=== PATIENT | female | born 1955 | race Caucasian/White ===

== ENCOUNTER 2020-07-23 06:07 | Outpatient (REF) | payer MEDICARE, OTHER, SELFPAY ==
[2020-07-23 11:10] LABS: MANUAL DIFF FLAG NO
[2020-07-23 11:18] LABS: Basophils Percent Auto 0.4 % (0-2); Eosinophils Absolute Auto 0.2 X10*3/uL (0.0-0.4); Eosinophils Percent Auto 1.9 % (0-4); Hematocrit 44.2 % (37-47); Hemoglobin 14.3 g/dl (12.0-16.0); Imm Gran Abs Auto 0.02 X10*3/uL (0.00-0.03); Imm Gran Pct Auto 0.3 % (0.0-0.4); Lymphocytes Absolute Auto 3.1 X10*3/uL (1.2-4.9); Lymphocytes Percent Auto 38.8 % (20-40); Mean Corpuscular HGB Conc 32.4 g/dl (31.0-35.0); Mean Corpuscular Hemoglobin 32.6 pg (27.0-33.0); Mean Corpuscular Volume 100.9 fL (80-98); Mean Platelet Volume 9.4 fL (9.4-12.3); Monocytes Absolute Auto 0.7 X10*3/uL (0.1-1.2); Monocytes Percent Auto 8.8 % (2-11); Neutrophils Percent Auto 49.8 % (45-73); Platelet Count 347 X10*3/uL (160-400); Red Blood Count 4.38 X10*6/uL (4.20-5.50); Red Cell Distribution Width 12.6 % (11.0-16.0)
[2020-07-23 11:56] LABS: Alanine Aminotransferase 24 U/L (0-31); Albumin Level 4.2 g/dL (3.5-5.0); Alkaline Phosphatase 72 U/L (39-117); Anion Gap 11 (12-20); Aspartate Amino Transferase 19 U/L (5-31); Bilirubin Total 0.5 mg/dL (0.0-1.0); Blood Urea Nitrogen 19 mg/dL (9-16); Calcium 9.4 mg/dL (8.4-10.2); Carbon Dioxide 30 mmol/L (22-29); Chloride 101 mmol/L (96-108); Cholesterol 198 mg/dL; Estimated Glomerular Filt Rate > 60; Glucose Fasting 96 mg/dL (60-99); HDL Cholesterol 50 mg/dL; LDL Cholesterol Calculated 118 mg/dl; Potassium 4.9 mmol/l (3.3-5.1); Sodium 137 mmol/L (135-145); Triglycerides 152 mg/dL
== END 2020-07-23 06:08 | disposition home or self-care (01) ==
LOC: HO.HMGCLDS 06:07
PROVIDERS: PCP Internal Medicine; Visit Provider Internal Medicine
DX: I10 Essential (primary) hypertension (principal); E78.9 Disorder of lipoprotein metabolism, unspecified; Z72.0 Tobacco use; Z71.6 Tobacco abuse counseling
CPT/HCPCS: 36415; 80053; 80061; 85025

== ENCOUNTER 2021-02-06 06:13 | Outpatient (REF) | payer MEDICARE, SELFPAY ==
[2021-02-06 11:58] LABS: MANUAL DIFF FLAG NO
[2021-02-06 12:26] LABS: Basophils Percent Auto 0.4 % (0-2); Eosinophils Absolute Auto 0.1 X10*3/uL (0.0-0.4); Eosinophils Percent Auto 0.8 % (0-4); Hematocrit 47.2 % (37-47); Hemoglobin 15.5 g/dl (12.0-16.0); Imm Gran Abs Auto 0.03 X10*3/uL (0.00-0.03); Imm Gran Pct Auto 0.4 % (0.0-0.4); Lymphocytes Absolute Auto 2.4 X10*3/uL (1.2-4.9); Lymphocytes Percent Auto 28.5 % (20-40); Mean Corpuscular HGB Conc 32.8 g/dl (31.0-35.0); Mean Corpuscular Hemoglobin 33.6 pg (27.0-33.0); Mean Corpuscular Volume 102.4 fL (80-98); Mean Platelet Volume 9.5 fL (9.4-12.3); Monocytes Absolute Auto 0.6 X10*3/uL (0.1-1.2); Monocytes Percent Auto 7.3 % (2-11); Neutrophils Absolute Auto 5.2 X10*3/uL (2.0-8.3); Neutrophils Percent Auto 62.6 % (45-73); Platelet Count 325 X10*3/uL (160-400); Red Blood Count 4.61 X10*6/uL (4.20-5.50); Red Cell Distribution Width 13.3 % (11.0-16.0); White Blood Count 8.3 X10*3/uL (4.8-10.8)
[2021-02-06 13:36] LABS: Alanine Aminotransferase 30 U/L (0-31); Albumin Level 4.6 g/dL (3.5-5.0); Alkaline Phosphatase 75 U/L (39-117); Anion Gap 19 (12-20); Aspartate Amino Transferase 32 U/L (5-31); Bilirubin Total 1.3 mg/dL (0.0-1.0); Blood Urea Nitrogen 12 mg/dL (9-16); Carbon Dioxide 21 mmol/L (22-29); Chloride 101 mmol/L (96-108); Cholesterol 212 mg/dL; Estimated Glomerular Filt Rate > 60; Glucose Fasting 93 mg/dL (60-99); HDL Cholesterol 64 mg/dL; LDL Cholesterol Calculated 113 mg/dl; Potassium 4.7 mmol/L (3.3-5.1); Sodium 136 mmol/L (135-145); Total Protein 7.8 g/dL (6.5-8.0); Triglycerides 179 mg/dL
== END 2021-02-06 06:14 | disposition home or self-care (01) ==
LOC: HO.HMGCLDS 06:13
PROVIDERS: PCP Internal Medicine; Visit Provider Internal Medicine
DX: I10 Essential (primary) hypertension (principal); E78.9 Disorder of lipoprotein metabolism, unspecified; Z72.0 Tobacco use
CPT/HCPCS: 36415; 80053; 80061; 85025

== ENCOUNTER 2021-03-20 08:47 | Outpatient (REF) | payer MEDICARE, SELFPAY ==
--- NOTE | ~2021-03-20 | MM_ITS ---
EXAMINATION: MM SCREENING DIGITAL BREAST TOMOSYNTHESIS, BILATERAL CLINICAL INFORMATION: Screening. Asymptomatic. The lifetime risk of breast cancer based on the Tyrer-Cuzick Model is 7%. COMPARISON: Mammography: 07/06/2019, 06/15/2018, 01/05/2017 TECHNIQUE: Digital breast tomosynthesis is performed in both the craniocaudal and mediolateral oblique views along with computer-aided detection (CAD). Synthesized 2D images are generated from the tomosynthesis. FINDINGS: There are scattered areas of fibroglandular density (ACR BI-RADS breast composition Category b). There are no significant masses, abnormal calcifications, or other abnormalities. Inhomogeneous parenchymal pattern is similar to prior exams. No developing density. The axilla and skin contours are unremarkable. MM/MM tomosynthesis screening BI IMPRESSION: No mammographic evidence of malignancy. ASSESSMENT: BI-RADS 1: Negative RECOMMENDATION: Routine annual mammography screening. This patient's information was entered into a reminder system with a target due date for their next mammogram.
== END 2021-03-20 08:48 | disposition home or self-care (01) ==
LOC: HO.MAMMO 08:47
PROVIDERS: Visit Provider Internal Medicine
DX: Z12.31 Encounter for screening mammogram for malignant neoplasm of breast (principal)
CPT/HCPCS: 77063; 77067

== ENCOUNTER 2021-10-06 08:50 | Outpatient (REF) | payer MEDICARE, SELFPAY ==
[2021-10-06 11:53] LABS: Alanine Aminotransferase 21 U/L (0-31); Albumin Level 4.3 g/dL (3.5-5.0); Alkaline Phosphatase 72 U/L (39-117); Anion Gap 14 (12-20); Aspartate Amino Transferase 23 U/L (5-31); Blood Urea Nitrogen 15 mg/dL (9-16); Calcium 10.3 mg/dL (8.4-10.2); Carbon Dioxide 28 mmol/L (22-29); Chloride 102 mmol/L (96-108); Estimated Glomerular Filt Rate > 60; Glucose Random 96 mg/dL (60-115); Potassium 4.7 mmol/L (3.3-5.1); Sodium 139 mmol/L (135-145); Total Protein 7.3 g/dL (6.5-8.0)
== END 2021-10-06 08:51 | disposition home or self-care (01) ==
LOC: HO.HMGCLDS 08:50
PROVIDERS: Visit Provider Internal Medicine
DX: E78.9 Disorder of lipoprotein metabolism, unspecified (principal); I10 Essential (primary) hypertension; Z72.0 Tobacco use
CPT/HCPCS: 36415; 80053

== ENCOUNTER 2022-04-07 06:18 | Outpatient (REF) | payer MEDICARE, SELFPAY ==
[2022-04-07 13:48] LABS: Alanine Aminotransferase 17 U/L (0-31); Albumin Level 4.3 g/dL (3.5-5.0); Alkaline Phosphatase 76 U/L (39-117); Anion Gap 13 (12-20); Aspartate Amino Transferase 18 U/L (5-31); Bilirubin Total 0.7 mg/dL (0.0-1.0); Blood Urea Nitrogen 14 mg/dL (9-16); Calcium 9.3 mg/dL (8.4-10.2); Carbon Dioxide 28 mmol/L (22-29); Chloride 101 mmol/L (96-108); Cholesterol 219 mg/dL; Estimated Glomerular Filt Rate > 60; Glucose Fasting 103 mg/dL (60-99); HDL Cholesterol 57 mg/dL; LDL Cholesterol Calculated 141 mg/dl; Potassium 4.6 mmol/L (3.3-5.1); Sodium 137 mmol/L (135-145); Triglycerides 108 mg/dL
== END 2022-04-07 06:19 | disposition home or self-care (01) ==
LOC: HO.HMGCLDS 06:18
PROVIDERS: PCP Internal Medicine; Visit Provider Internal Medicine
DX: E78.9 Disorder of lipoprotein metabolism, unspecified (principal); I10 Essential (primary) hypertension; M18.12 Unilateral primary osteoarthritis of first carpometacarpal joint, left hand; Z72.0 Tobacco use
CPT/HCPCS: 36415; 80053; 80061

== ENCOUNTER 2022-10-06 18:27 | Inpatient (IN) | payer MEDICARE, SELFPAY ==
--- NOTE | ~2022-10-06 | XR_ITS ---
EXAMINATION: XR ABDOMEN KUB CLINICAL INDICATION: Instrument count in OR. COMPARISON: CT scan of 10/06/2022. TECHNIQUE: AP view of the pelvis FINDINGS: Visualized bowel loops appear unremarkable. Staple line is seen about the right lower pelvis. No radiopaque foreign body is identified to suggest a retained foreign body. About the upper thigh there is evidence of a sponge but which is not in the region of the peritoneum and is likely overlying. Peace catheter in place. No evidence of acute fracture or diastases of the pelvis. There appears be significant degenerative disc disease seen of the lower lumbar spine. XR/XR KUB IMPRESSION: No retained instruments seen about the pelvis.
--- NOTE | ~2022-10-06 | CT_ITS ---
EXAMINATION: CT ABDOMEN AND PELVIS WITH CONTRAST CLINICAL INFORMATION: Strangulated right inguinal hernia. COMPARISON: None TECHNIQUE: Multidetector volumetric images were obtained from the superior aspect of the liver through the pubic symphysis following administration 85 mL of Omnipaque 350 intravenous contrast. Sagittal and coronal reformatted images were obtained on the technologist's workstation. Oral contrast: No This CT examination was performed using dose optimization techniques as appropriate, variously including the following: *Automated exposure control *Adjustment of mA and/or kV according to patient size (this includes techniques or standardized protocols for targeted exams where dose is matched to indication/reason for exam; i.e. extremities or head) *Use of iterative reconstruction technique DLP: 516 mGy-cm FINDINGS: LUNG BASES: The visualized lung bases are unremarkable. LIVER, GALLBLADDER, AND BILIARY TREE: The liver is normal in size, shape, and attenuation. No focal hepatic lesion or biliary ductal dilatation is present. The gallbladder is unremarkable with no evidence of radiopaque gallstones, gallbladder wall thickening, or obvious pericholecystic inflammatory changes. PANCREAS: Unremarkable. SPLEEN: Unremarkable. ADRENAL GLANDS: Unremarkable. KIDNEYS AND URETERS: The kidneys are normal in size, shape, and attenuation. No hydronephrosis, hydroureter, or calculi seen. No perinephric stranding. BLADDER: Unremarkable. ABDOMINAL WALL/GASTROINTESTINAL TRACT: There is a cannulated right inguinal hernia. There is a loop of small bowel extending through the right inguinal canal causing obstruction at the level canal. The loop of bowel in the inguinal canal is slightly dilated as well. The small bowel loops distal to the hernia are decompressed. There is no bowel wall thickening or edema. There is a small volume of fluid in the mesentery. No free air or portal venous gas. The large bowel is decompressed. Small volume of stool in the right colon. The appendix is normal. LYMPH NODES: Normal. VASCULAR: Atherosclerotic vascular calcifications throughout the abdomen and the pelvis. There is no aneurysm. PELVIC VISCERA: Uterus is absent. No adnexal abnormality. OSSEOUS STRUCTURES: Multilevel degenerative spondylosis spine. Vacuum disc phenomena L4-L5. CT/CT abdomen pelvis w IV con IMPRESSION: Incarcerated right inguinal hernia containing a loop of small bowel causing obstruction at the level of the hernia. There is a small volume of fluid in the mesentery. No bowel wall thickening or edema. Fleischner guidelines were followed. This critical result was discussed with Enrique Edward on 10/06/2022, 10:00 PM and it was ascertained that the content and urgency of the report was understood at the time of direct communication.
--- NOTE | 2022-10-06 18:44 | ED_ITS ---
HPI - Abdominal Pain General Chief Complaint: Abdominal Pain Stated Complaint: stomach ache, lump in groin area Time Seen by Provider: 10/06/22 19:57 Related Data Previous Rx's Medication Instructions Recorded lisinopril 20 mg tablet 20 mg PO DAILY 90 days #90 tabs 08/20/22 lovastatin 20 mg tablet 20 mg PO DAILY 90 days #90 tabs 08/20/22 ibuprofen 600 mg tablet 600 mg PO Q6H PRN pain #30 tabs 10/08/22 oxycodone-acetaminophen 5 mg-325 1 tab PO Q4-6H PRN pain #20 tabs 10/08/22 mg tablet (Percocet) Allergies Allergy/AdvReac Type Severity Reaction Status Date / Time No Known Allergies Allergy Verified 10/12/22 08:18 [facility] Past Medical History Medical History Hypertension, essential Lipid disorder Tobacco abuse Surgical History History of vaginal hysterectomy Family History Family History Father Lung cancer Smoker Mother Breast cancer Dementia Brother Myocardial infarction Brother No problems noted. Sister No problems noted. Sister No problems noted. Sister No problems noted. Son No problems noted. Social History Social History Household Members: Family Housing: Apartment Do you presently have visiting nurse or other home services: No Alcohol intake: current Alcohol intake frequency: holidays/special occasions only Alcohol type: beer and hard liquor Patient Tobacco Use Status: Current everyday Tobacco user Tobacco use type: Cigarette Cigarettes Per Day: 4 e-Cigarette/Vaping Use: Never Used service: No Current occupational status: employed Cognitive needs: No Hearing needs: No Vision needs: No Physical Exam ED Vital Signs: BMI result Body Mass Index 26.2 Course Course Course Narrative: This is a rapid medical exam. Deferred additional HPI, ROS, PE to primary provider. 67 yo female with past medical history of COPD, HTN, HLD here with complaints of abdominal pain 11am with lump to right groin, vomiting. Had total hyst 8 yrs ago, no other abdominal surgery history. In triage right inguinal hernia quite painful-concern for incarcerated hernia. Will need labs, UA, covid screen, CT. Charge nurse to be notified. Medical Decision Making Lab Data 10/06/22 19:28 10/06/22 19:28 Labs: Lab Results 10/06/22 10/06/22 10/06/22 Range/Units 19:28 19:28 19:28 WBC 11.5 H (4.8-10.8) X10*3/uL RBC 4.75 (4.20-5.50) X10*6/uL Hgb 16.0 (12.0-16.0) g/dl Hct 46.0 (37.0-47.0) % MCV 96.8 (80.0-98.0) fL MCH 33.7 H (27.0-33.0) pg MCHC 34.8 (31.0-35.0) g/dl RDW 12.0 (11.0-16.0) % Plt Count 364 (160-400) X10*3/uL MPV 8.3 L (9.4-12.3) fL Immature Gran % (Auto) 0.3 (0.0-0.4) % Neut % (Auto) 80.5 H (45-73) % Lymph % (Auto) 15.5 L (20-40) % Quay % (Auto) 3.2 (2-11) % Eos % (Auto) 0.2 (0-4) % Baso % (Auto) 0.3 (0-2) % Lymph # (Auto) 1.8 (1.2-4.9) X10*3/uL Quay # (Auto) 0.4 (0.1-1.2) X10*3/uL Eos # (Auto) 0.0 (0.0-0.4) X10*3/uL Baso # (Auto) 0.0 (0.0-0.2) X10*3/uL Abs Immat Gran (auto) 0.03 (0.00-0.03) X10*3/uL Absolute Neuts (auto) 9.3 H (2.0-8.3) x10*3/uL Absolute Nucleated RBC 0.000 (0.0-0.012) X10*3/uL Nucleated RBC % (auto) 0.0 (0.0-0.2) /100WBC PT (10.0-13.1) SEC INR (0.9-1.1) Sodium 135 (135-145) mmol/L Potassium 4.9 (3.3-5.1) mmol/L Chloride 100 (96-108) mmol/L Carbon Dioxide 25 (22-29) mmol/L Anion Gap 15 (12-20) BUN 21 H (9-16) mg/dL Creatinine 0.77 (0.5-1.4) mg/dL Estim Creat Clear Calc 65.2 Estimated GFR > 60 Random Glucose 162 H (60-115) mg/dL Lactic Acid (0.5-2.0) mmol/L Calcium 10.1 D (8.4-10.2) mg/dL Total Bilirubin 0.8 (0.0-1.0) mg/dL Direct Bilirubin 0.2 (0.0-0.5) mg/dL AST 19 (5-31) U/L ALT 14 (0-31) U/L Alkaline Phosphatase 99 (39-117) U/L Total Protein 7.4 (6.5-8.0) g/dL Albumin 4.3 (3.5-5.0) g/dL Lipase 12 (8-78) U/L COVID-19 (NISHANT) Negative (Negative) COVID-19 Clin Com See Note 10/06/22 10/06/22 10/06/22 Range/Units 19:28 20:30 20:30 WBC (4.8-10.8) X10*3/uL RBC (4.20-5.50) X10*6/uL Hgb (12.0-16.0) g/dl Hct (37.0-47.0) % MCV (80.0-98.0) fL MCH (27.0-33.0) pg MCHC (31.0-35.0) g/dl RDW (11.0-16.0) % Plt Count (160-400) X10*3/uL MPV (9.4-12.3) fL Immature Gran % (Auto) (0.0-0.4) % Neut % (Auto) (45-73) % Lymph % (Auto) (20-40) % Quay % (Auto) (2-11) % Eos % (Auto) (0-4) % Baso % (Auto) (0-2) % Lymph # (Auto) (1.2-4.9) X10*3/uL Quay # (Auto) (0.1-1.2) X10*3/uL Eos # (Auto) (0.0-0.4) X10*3/uL Baso # (Auto) (0.0-0.2) X10*3/uL Abs Immat Gran (auto) (0.00-0.03) X10*3/uL Absolute Neuts (auto) (2.0-8.3) x10*3/uL Absolute Nucleated RBC (0.0-0.012) X10*3/uL Nucleated RBC % (auto) (0.0-0.2) /100WBC PT 11.0 (10.0-13.1) SEC INR 1.0 (0.9-1.1) Sodium (135-145) mmol/L Potassium (3.3-5.1) mmol/L Chloride (96-108) mmol/L Carbon Dioxide (22-29) mmol/L Anion Gap (12-20) BUN (9-16) mg/dL Creatinine (0.5-1.4) mg/dL Estim Creat Clear Calc Estimated GFR Random Glucose (60-115) mg/dL Lactic Acid 0.9 0.8 (0.5-2.0) mmol/L Calcium (8.4-10.2) mg/dL Total Bilirubin (0.0-1.0) mg/dL Direct Bilirubin (0.0-0.5) mg/dL AST (5-31) U/L ALT (0-31) U/L Alkaline Phosphatase (39-117) U/L Total Protein (6.5-8.0) g/dL Albumin (3.5-5.0) g/dL Lipase (8-78) U/L COVID-19 (NISHANT) (Negative) COVID-19 Clin Com Medications Administered Discontinued Medications Generic Name Dose Route Start Last Admin Trade Name Freq PRN Reason Stop Dose Admin Hydromorphone HCl 1 mg 10/06/22 20:03 10/06/22 20:34 Hydromorphone Hcl 1 Mg/Ml Syringe IVPUSH 10/06/22 20:04 1 mg ONCE ONE Administration Protocol Sodium Chloride 1,000 mls @ 999 mls/hr 10/06/22 20:15 10/07/22 06:15 Ns IV 10/06/22 21:15 Infused .Q1H1M LOLY Infusion Sodium Chloride 1,000 mls @ 60 mls/hr 10/06/22 23:45 10/08/22 09:42 Ns IVCONT Infused .[id number] LOLY Infusion Cefazolin Sodium 2 gm/ Sodium 100 mls @ 200 mls/hr 10/06/22 23:48 10/07/22 06:16 Chloride IV 10/07/22 00:17 Infused ONCE ONE Infusion Cefazolin Sodium 1 gm/ Sodium 50 mls @ 100 mls/hr 10/07/22 04:00 10/07/22 06:35 Chloride IV 10/08/22 06:00 Not Given Q8H LOLY Cefazolin Sodium 1 gm/ Sodium 50 mls @ 100 mls/hr 10/07/22 10:00 10/08/22 09:42 Chloride IV Infused Q8H [facility] Infusion Iohexol 100 ml 10/06/22 21:25 10/06/22 21:25 Iohexol 350 Mg/Ml 100 Ml Infus..Btl IV 10/06/22 21:26 85 ml ONCE ONE Administration Lorazepam 0.5 mg 10/06/22 20:03 10/06/22 20:33 Lorazepam 2 Mg/Ml Vial IVPUSH 10/06/22 20:04 0.5 mg ONCE ONE Administration Oxycodone HCl 5 mg 10/07/22 00:13 10/08/22 09:14 Oxycodone Hcl Immed Release 5 Mg Tablet PO 5 mg ONCE PRN Administration Pain, Severe (Pain Scale 7-10) Oxycodone HCl 10 mg 10/07/22 03:59 10/08/22 03:56 Oxycodone Hcl Immed Release 5 Mg Tablet PO 10 mg Q4H PRN Administration Pain, Severe (Pain Scale 7-10) Sodium Chloride 3 ml 10/07/22 00:00 10/08/22 09:09 0.9 % Sodium Chloride Flush 3 Ml Syringe IVFLUSH 3 ml QSHIFT [facility] Administration Discharge Plan Discharge Clinical Impression: Incarcerated inguinal hernia Patient Disposition: Admitted As Inpatient Interventions: Admission Worksheet (ED) Last Done: 10/07/22 07:07 Discharge Date/Time: 10/07/22 01:00
[2022-10-06 18:45] VITALS: BP 145/92; PULSE 72; RESP 18; TEMP 36.8; O2SAT 93; BMI 26.2
[2022-10-06 19:34] LABS: MANUAL DIFF FLAG NO
[2022-10-06 19:36] LABS: Basophils Percent Auto 0.3 % (0-2); Eosinophils Percent Auto 0.2 % (0-4); Imm Gran Abs Auto 0.03 X10*3/uL (0.00-0.03); Imm Gran Pct Auto 0.3 % (0.0-0.4); Lymphocytes Absolute Auto 1.8 X10*3/uL (1.2-4.9); Lymphocytes Percent Auto 15.5 % (20-40); Mean Corpuscular HGB Conc 34.8 g/dl (31.0-35.0); Mean Corpuscular Hemoglobin 33.7 pg (27.0-33.0); Mean Corpuscular Volume 96.8 fL (80.0-98.0); Mean Platelet Volume 8.3 fL (9.4-12.3); Monocytes Absolute Auto 0.4 X10*3/uL (0.1-1.2); Monocytes Percent Auto 3.2 % (2-11); Neutrophils Absolute Auto 9.3 x10*3/uL (2.0-8.3); Neutrophils Percent Auto 80.5 % (45-73); Platelet Count 364 X10*3/uL (160-400); Red Blood Count 4.75 X10*6/uL (4.20-5.50); White Blood Count 11.5 X10*3/uL (4.8-10.8)
[2022-10-06 19:47] LABS: Lactic Acid 0.9 mmol/L (0.5-2.0)
[2022-10-06 19:50] LABS: COVID-19 Test Negative (Negative); IDNOW Serial# 6674DD1D
[2022-10-06 19:53] LABS: Alanine Aminotransferase 14 U/L (0-31); Albumin Level 4.3 g/dL (3.5-5.0); Alkaline Phosphatase 99 U/L (39-117); Anion Gap 15 (12-20); Aspartate Amino Transferase 19 U/L (5-31); Bilirubin Direct 0.2 mg/dL (0.0-0.5); Bilirubin Total 0.8 mg/dL (0.0-1.0); Blood Urea Nitrogen 21 mg/dL (9-16); Calcium 10.1 mg/dL (8.4-10.2); Carbon Dioxide 25 mmol/L (22-29); Chloride 100 mmol/L (96-108); Creatinine Clr Calc Pharmacy 65.2; Estimated Glomerular Filt Rate > 60; Glucose Random 162 mg/dL (60-115); Lipase 12 U/L (8-78); Potassium 4.9 mmol/L (3.3-5.1); Sodium 135 mmol/L (135-145); Total Protein 7.4 g/dL (6.5-8.0)
--- NOTE | 2022-10-06 20:05 | ECG_ITS ---
Test Reason : ABD PAIN Blood Pressure : / mmHG Vent. Rate : 076 BPM Atrial Rate : 076 BPM P-R Int : 162 ms QRS Dur : 096 ms QT Int : 406 ms P-R-T Axes : 069 063 071 degrees QTc Int : 456 ms Normal sinus rhythm Normal ECG No previous ECGs available Referred By: Enrique Flores Electronically Signed By:Kit Kirk
--- NOTE | 2022-10-06 20:07 | ED.ABDPAIN ---
HPI - Abdominal Pain General Chief Complaint: Abdominal Pain Stated Complaint: stomach ache, lump in groin area Time Seen by Provider: 10/06/22 19:57 Source: patient and old records reviewed History of Present Illness HPI narrative: Patient with acute onset abdominal pain. Patient states she has recently had a cough but no other illnesses. She tested for COVID negative at home. Today, however, she developed acute severe abdominal pain. She complains of pain neuro upper epigastric area as well as a large new lump in her right groin. She does not have a history of hernias. Last bowel movement was yesterday and normal. Nausea vomiting today after the pain started. No recent diarrhea. No urinary symptoms No fevers or chills Pain is severe. Related Data Previous Rx's Medication Instructions Recorded lisinopril 20 mg tablet 20 mg PO DAILY 90 days #90 tabs 08/20/22 lovastatin 20 mg tablet 20 mg PO DAILY 90 days #90 tabs 08/20/22 Allergies Allergy/AdvReac Type Severity Reaction Status Date / Time No Known Allergies Allergy Verified 04/06/22 08:29 Review of Systems Comments: No fevers or chills Comments: No chest pain Comments: Recent cough. No dyspnea Comments: Abdominal pain is described Comments: No urinary symptoms Comments: No change in skin color PMFSH Past Medical History Medical History Hypertension, essential Lipid disorder Tobacco abuse Surgical History History of vaginal hysterectomy Family History Family History Father Lung cancer Smoker Mother Breast cancer Dementia Brother Myocardial infarction Brother No problems noted. Sister No problems noted. Sister No problems noted. Sister No problems noted. Son No problems noted. Social History Social History Housing: House Alcohol intake: current Alcohol intake frequency: holidays/special occasions only Alcohol type: beer and hard liquor Patient Tobacco Use Status: Current everyday Tobacco user Cigarette Packs Per Day: 0.5 Smoked in Last 30 Days: Yes e-Cigarette/Vaping Use: Never Used Use of substances other than those prescribed or required for medical reasons: No Advance Directives: No Advance Directives Information Provided: No Current occupational status: employed Cognitive needs: No Hearing needs: No Vision needs: No Physical Exam ED Vital Signs: Vital Signs - 24 hr 10/06/22 18:45 10/06/22 20:34 10/06/22 21:51 Temperature 98.3 F 98.6 F Pulse Rate 72 76 Respiratory Rate 18 16 20 Blood Pressure 145/92 H 133/78 Pulse Oximetry 93 93 Oxygen Delivery Method Room Air Nasal Cannula Oxygen Flow Rate 2 BMI result Body Mass Index 26.2 Const Other: Awake alert. Appears uncomfortable Resp Other: Clear and equal bilaterally Cardio Other: Regular rate and rhythm without murmurs rubs or gallops GI Other: Abdomen is soft and minimally distended. She is tender in the epigastric area. She has a large 5 x 10 cm mass in her right inguinal area. It is firm and tender. I am unable to reduce it at this time Skin Other: Warm pale and dry Neuro Other: Nonfocal neuro exam Medical Decision Making Medical Decision Making MDM Narrative: Patient with acute abdominal pain and now with a mass in her right inguinal area. It is consistent with an incarcerated probably strangulated hernia given her vomiting. Will medicate with IV pain medications and attempt to reduce it again. Will also image post reduction. 20:11. Lab work shows normal chemistries including creatinine. Her glucose is mildly elevated 162. CBC is remarkable for a white count of 11.5. Hemoglobin is normal to high. Serology shows no evidence of COVID-19 infection. 20:46. Patient medicated with Dilaudid and Ativan. She is more comfortable. Patient then placed in Trendelenburg position. Attempted reduction of hernia with gentle pressure. Patient tolerated the attempt well but attempted reduction was unsuccessful. Will send CT scan at this time 23:06. CT scan shows incarcerated hernia. There is no bowel wall thickening however but there is obstruction. Case discussed with Dr. Ferrara, surgery. She is in to see the patient for probable operative reduction. Lab Data 10/06/22 19:28 10/06/22 19:28 Labs: Lab Results 10/06/22 10/06/22 10/06/22 Range/Units 19:28 19:28 19:28 WBC 11.5 H (4.8-10.8) X10*3/uL RBC 4.75 (4.20-5.50) X10*6/uL Hgb 16.0 (12.0-16.0) g/dl Hct 46.0 (37.0-47.0) % MCV 96.8 (80.0-98.0) fL MCH 33.7 H (27.0-33.0) pg MCHC 34.8 (31.0-35.0) g/dl RDW 12.0 (11.0-16.0) % Plt Count 364 (160-400) X10*3/uL MPV 8.3 L (9.4-12.3) fL Immature Gran % (Auto) 0.3 (0.0-0.4) % Neut % (Auto) 80.5 H (45-73) % Lymph % (Auto) 15.5 L (20-40) % Whiteside % (Auto) 3.2 (2-11) % Eos % (Auto) 0.2 (0-4) % Baso % (Auto) 0.3 (0-2) % Lymph # (Auto) 1.8 (1.2-4.9) X10*3/uL Whiteside # (Auto) 0.4 (0.1-1.2) X10*3/uL Eos # (Auto) 0.0 (0.0-0.4) X10*3/uL Baso # (Auto) 0.0 (0.0-0.2) X10*3/uL Abs Immat Gran (auto) 0.03 (0.00-0.03) X10*3/uL Absolute Neuts (auto) 9.3 H (2.0-8.3) x10*3/uL Absolute Nucleated RBC 0.000 (0.0-0.012) X10*3/uL Nucleated RBC % (auto) 0.0 (0.0-0.2) /100WBC PT (10.0-13.1) SEC INR (0.9-1.1) Sodium 135 (135-145) mmol/L Potassium 4.9 (3.3-5.1) mmol/L Chloride 100 (96-108) mmol/L Carbon Dioxide 25 (22-29) mmol/L Anion Gap 15 (12-20) BUN 21 H (9-16) mg/dL Creatinine 0.77 (0.5-1.4) mg/dL Estim Creat Clear Calc 65.2 Estimated GFR > 60 Random Glucose 162 H (60-115) mg/dL Lactic Acid (0.5-2.0) mmol/L Calcium 10.1 D (8.4-10.2) mg/dL Total Bilirubin 0.8 (0.0-1.0) mg/dL Direct Bilirubin 0.2 (0.0-0.5) mg/dL AST 19 (5-31) U/L ALT 14 (0-31) U/L Alkaline Phosphatase 99 (39-117) U/L Total Protein 7.4 (6.5-8.0) g/dL Albumin 4.3 (3.5-5.0) g/dL Lipase 12 (8-78) U/L COVID-19 (NISHANT) Negative (Negative) COVID-19 Clin Com See Note 10/06/22 10/06/22 10/06/22 Range/Units 19:28 20:30 20:30 WBC (4.8-10.8) X10*3/uL RBC (4.20-5.50) X10*6/uL Hgb (12.0-16.0) g/dl Hct (37.0-47.0) % MCV (80.0-98.0) fL MCH (27.0-33.0) pg MCHC (31.0-35.0) g/dl RDW (11.0-16.0) % Plt Count (160-400) X10*3/uL MPV (9.4-12.3) fL Immature Gran % (Auto) (0.0-0.4) % Neut % (Auto) (45-73) % Lymph % (Auto) (20-40) % Whiteside % (Auto) (2-11) % Eos % (Auto) (0-4) % Baso % (Auto) (0-2) % Lymph # (Auto) (1.2-4.9) X10*3/uL Whiteside # (Auto) (0.1-1.2) X10*3/uL Eos # (Auto) (0.0-0.4) X10*3/uL Baso # (Auto) (0.0-0.2) X10*3/uL Abs Immat Gran (auto) (0.00-0.03) X10*3/uL Absolute Neuts (auto) (2.0-8.3) x10*3/uL Absolute Nucleated RBC (0.0-0.012) X10*3/uL Nucleated RBC % (auto) (0.0-0.2) /100WBC PT 11.0 (10.0-13.1) SEC INR 1.0 (0.9-1.1) Sodium (135-145) mmol/L Potassium (3.3-5.1) mmol/L Chloride (96-108) mmol/L Carbon Dioxide (22-29) mmol/L Anion Gap (12-20) BUN (9-16) mg/dL Creatinine (0.5-1.4) mg/dL Estim Creat Clear Calc Estimated GFR Random Glucose (60-115) mg/dL Lactic Acid 0.9 0.8 (0.5-2.0) mmol/L Calcium (8.4-10.2) mg/dL Total Bilirubin (0.0-1.0) mg/dL Direct Bilirubin (0.0-0.5) mg/dL AST (5-31) U/L ALT (0-31) U/L Alkaline Phosphatase (39-117) U/L Total Protein (6.5-8.0) g/dL Albumin (3.5-5.0) g/dL Lipase (8-78) U/L COVID-19 (NISHANT) (Negative) COVID-19 Clin Com Medications Administered Discontinued Medications Generic Name Dose Route Start Last Admin Trade Name Freq PRN Reason Stop Dose Admin Hydromorphone HCl 1 mg 10/06/22 20:03 10/06/22 20:34 Hydromorphone Hcl 1 Mg/Ml Syringe IVPUSH 10/06/22 20:04 1 mg ONCE ONE Administration Protocol Sodium Chloride 1,000 mls @ 999 mls/hr 10/06/22 20:15 10/06/22 20:34 Ns IV 10/06/22 21:15 999 mls/hr .Q1H1M LOLY Administration Iohexol 100 ml 10/06/22 21:25 10/06/22 21:25 Iohexol 350 Mg/Ml 100 Ml Infus..Btl IV 10/06/22 21:26 85 ml ONCE ONE Administration Lorazepam 0.5 mg 10/06/22 20:03 10/06/22 20:33 Lorazepam 2 Mg/Ml Vial IVPUSH 10/06/22 20:04 0.5 mg ONCE ONE Administration Discharge Plan Discharge Prescriptions: No Action lovastatin 20 mg tablet 20 mg PO DAILY 90 Days Qty: 90 0RF lisinopril 20 mg tablet 20 mg PO DAILY 90 Days Qty: 90 0RF
[2022-10-06] MEDS: LORazepam 2 MG/ML VIAL 0.5 MG IVPUSH (20:33)
[2022-10-06 20:34] VITALS: RESP 16
[2022-10-06] MEDS: HYDROmorphone HCl 1 MG/ML SYRINGE IVPUSH (20:34)
[2022-10-06] MEDS: 0.9 % Sodium Chloride 1,000 ML 999 ML IV (20:34)
--- NOTE | 2022-10-06 20:46 | PC.NURSE ---
Patient is alert and oriented x3. Patient c/o constant achy, sharp pain in right lower abdomen 10/10 on 0-10 pain scale, nausea and vomiting x1 episode at ED. 20 G IV line established in R AC, labs drawn per MD orders. Patient medicated with Lorazepam and Dilaudid with good effect. Patient reports immediate relief in pain stating pain is down to 5/10 in 1 min and 0/10 in 2 min. Patient is resting comfortably. 1 L NS bolus infusing w/o issues. Call weldon within patient's reach.
[2022-10-06 20:51] LABS: Lactic Acid 0.8 mmol/L (0.5-2.0)
[2022-10-06] MEDS: iohexoL 350 MG/ML 100 ML INFUS..BTL IV (21:25)
[2022-10-06 21:51] VITALS: BP 133/78; PULSE 76; RESP 20; TEMP 37; O2SAT 93
--- NOTE | 2022-10-06 21:51 | MHC.EDTECH ---
put pt on 2 L O2, when doing vitals pt was stating at 84% on room air.
--- NOTE | 2022-10-06 23:36 | PM.HPGS ---
History of Present Illness History of Present Illness Date of Service: 10/06/22 Chief complaint: Incarcerated Hernia Narrative: Gely Lynn is a 67 year old female who over the last several weeks as been complaining of a lot of coughing unsure etiology. She is a smoker and smokes about a pack at cigarettes every 2 days. This morning she woke up and started having more abdominal pain some nausea and this got worse so she came into the emergency room. Here a lump was noted in her right groin CT scan shows findings incarcerated inguinal hernia with dilated small bowel. In the emergency room the ER doctor attempted to reduce this by sedating her but unfortunately it was unsuccessful. She still is complaining of pain in the groin area. She has never had any surgery other than hysterectomy she says which was carried out laparoscopically Review of Systems Review of Systems: Yes all other systems are reviewed and are negative Constitutional: Constitutional: Reports as per [facility] Past Medical History Medical History Hypertension, essential Lipid disorder Tobacco abuse Family History Family History Father Lung cancer Smoker Mother Breast cancer Dementia Brother Myocardial infarction Brother No problems noted. Sister No problems noted. Sister No problems noted. Sister No problems noted. Son No problems noted. Surgical History Surgical History History of vaginal hysterectomy Social History Social History Housing: House Alcohol intake: current Alcohol intake frequency: holidays/special occasions only Alcohol type: beer and hard liquor Patient Tobacco Use Status: Current everyday Tobacco user Cigarette Packs Per Day: 0.5 Smoked in Last 30 Days: Yes e-Cigarette/Vaping Use: Never Used Use of substances other than those prescribed or required for medical reasons: No Advance Directives: No Advance Directives Information Provided: No Current occupational status: employed Cognitive needs: No Hearing needs: No Vision needs: No Meds Allergies Allergy/AdvReac Type Severity Reaction Status Date / Time No Known Allergies Allergy Verified 04/06/22 08:29 Active Medications: Current Medications Sodium Chloride (Ns) 1,000 mls @ 100 mls/hr IVCONT .Q10H LOLY Sodium Chloride (0.9 % Sodium Chloride Flush 3 Ml Syringe) 3 ml IVFLUSH QSHIFT LOLY Physical Exam Vital Signs: Vital Signs: Last Vital Signs Temp 98.6 F 10/06/22 21:51 Pulse 76 10/06/22 21:51 Resp 20 10/06/22 21:51 BP 133/78 10/06/22 21:51 Pulse Ox 93 10/06/22 21:51 O2 Del Method 10/06/22 21:51 O2 Flow Rate 2 10/06/22 21:51 BMI result Body Mass Index 26.2 Const: General: cooperative, healthy appearing and comfortable Orientation/consciousness: oriented to person, oriented to place and oriented to time Eyes: General: appearance normal, both eyes and all related structures Chest: Chest palpation & inspection: normal inspection of the chest Resp: Effort & Inspection: normal respiratory effort and able to speak in complete sentences Auscultation: clear to auscultation bilaterally Cardio: Rate: regular rate Rhythm: regular rhythm GI: Other: abdomen is soft nondistended and nontender. In the right inguinal area there is a lump present and tenderness here. The lump is not reducible and it seems to be below the inguinal ligament most likely this is a femoral hernia left side is normal Inspection: Yes normal to inspection Skin: General skin exam: no rashes or lesions noted Neuro: General: oriented to person, oriented to place and oriented to time Cranial nerves: Yes CN's II-XII intact bilaterally Extrem: General: Yes normal to inspection Psych: Appearance: grossly normal Mental Status: mental status grossly normal Results Results Labs: Short CBC 10/06/22 Range/Units 19:28 WBC 11.5 H (4.8-10.8) X10*3/uL Hgb 16.0 (12.0-16.0) g/dl Hct 46.0 (37.0-47.0) % Plt Count 364 (160-400) X10*3/uL BMP 10/06/22 19:28 Sodium 135 Potassium 4.9 Chloride 100 Carbon Dioxide 25 BUN 21 H Creatinine 0.77 Calcium 10.1 D Liver Function 10/06/22 Range/Units 19:28 Total Bilirubin 0.8 (0.0-1.0) mg/dL Direct Bilirubin 0.2 (0.0-0.5) mg/dL AST 19 (5-31) U/L ALT 14 (0-31) U/L Alkaline Phosphatase 99 (39-117) U/L Albumin 4.3 (3.5-5.0) g/dL Abdomen CT scan report/results: report reviewed and image reviewed CT scan - pelvis: report reviewed and image reviewed Assessment and Plan (1) Incarcerated inguinal hernia: Status: Acute Plan patient is a 67-year-old female with incarcerated right inguinal hernia most likely a femoral hernia showing a knuckle of small bowel present and obstructed. This was unsuccessful in being reduced in the ER with sedation as a result patient is coming to the operating room to have this reduced and hernia defect repaired. Risks and benefits were discussed with the patient including but not limited to bleeding infection recurrent hernia and possible bowel ischemia which could require small bowel resection and possible ostomy. Most likely we should be able to get in there and reduce the bowel which hopefully should be viable since it seemed has not been strangulated for very long. Patient understands and agrees with the above plan. We will go were gently to the operating room Time Spent With Patient Time: Total time managing care of this patient today 45____ minutes. Quality Stroke Does the patient have a stroke diagnosis?: No VTE Prior VTE?: No VTE Risk Level:: Surgical - moderate VTE Device Contraindication: N/A - Device Ordered VTE Drug Contraindication: N/A - Med Ordered Procedures Date of Service Date of Service: 10/06/22
[2022-10-07] VITALS (11 sets, daily range): BP systolic 104–176; BP diastolic 50–90; PULSE 68–90; RESP 16–20; TEMP 36.2–36.8; O2SAT 92–97; BMI 26.6
[2022-10-07] MEDS: 0.9 % Sodium Chloride 1,000 ML 100 ML IVCONT ×3 (00:12→16:58)
--- NOTE | 2022-10-07 00:12 | HO.ANESPROP2 ---
[facility] Active Problems Active Problems: All Active Problems (Updated 10/06/22 @ 23:09 by Enrique Flores MD) Incarcerated inguinal hernia (Acute) Arthritis of carpometacarpal (CMC) joint of left thumb (Acute) Lipid disorder (Acute) Hypertension, essential (Acute) Tobacco abuse (Acute) Past Medical History Medical History Hypertension, essential Lipid disorder Tobacco abuse Family History Family History Father Lung cancer Smoker Mother Breast cancer Dementia Brother Myocardial infarction Brother No problems noted. Sister No problems noted. Sister No problems noted. Sister No problems noted. Son No problems noted. Family history of problems with anesthesia: No Surgical History Surgical History History of vaginal hysterectomy History of Problems with Anesthesia: No Social History Social History Housing: House Alcohol intake: current Alcohol intake frequency: holidays/special occasions only Alcohol type: beer and hard liquor Patient Tobacco Use Status: Current everyday Tobacco user Cigarette Packs Per Day: 0.5 Smoked in Last 30 Days: Yes e-Cigarette/Vaping Use: Never Used Use of substances other than those prescribed or required for medical reasons: No Advance Directives: No Advance Directives Information Provided: No Current occupational status: employed Cognitive needs: No Hearing needs: No Vision needs: No Meds Allergies Allergy/AdvReac Type Severity Reaction Status Date / Time No Known Allergies Allergy Verified 04/06/22 08:29 Active Medications: Current Medications Sodium Chloride (Ns) 1,000 mls @ 100 mls/hr IVCONT .Q10H [facility] Last Admin: 10/07/22 00:12 Dose: 100 mls/hr Cefazolin Sodium 2 gm/ Sodium (Chloride) 100 mls @ 200 mls/hr IV ONCE ONE Stop: 10/07/22 00:17 Sodium Chloride (0.9 % Sodium Chloride Flush 3 Ml Syringe) 3 ml IVFLUSH QSHIFT [facility] Exam Exam Date and Time: October 07, 2022 0012 Height,Weight and Vital Signs: Height 5 ft 3 in Weight 67.132 kg Last Vital Signs Temp 98.6 F 10/06/22 21:51 Pulse 76 10/06/22 21:51 Resp 20 10/06/22 21:51 BP 133/78 10/06/22 21:51 Pulse Ox 93 10/06/22 21:51 O2 Del Method 10/06/22 21:51 O2 Flow Rate 2 10/06/22 21:51 Pertinent Lab Results Pertinent Lab Results: Laboratory Tests 10/06/22 10/06/22 10/06/22 19:28 19:28 19:28 WBC 11.5 H RBC 4.75 Hgb 16.0 Hct 46.0 MCV 96.8 MCH 33.7 H MCHC 34.8 RDW 12.0 Plt Count 364 MPV 8.3 L Immature Gran % (Auto) 0.3 Neut % (Auto) 80.5 H Lymph % (Auto) 15.5 L [place] % (Auto) 3.2 Eos % (Auto) 0.2 Baso % (Auto) 0.3 Lymph # (Auto) 1.8 [place] # (Auto) 0.4 Eos # (Auto) 0.0 Baso # (Auto) 0.0 Abs Immat Gran (auto) 0.03 Absolute Neuts (auto) 9.3 H Absolute Nucleated RBC 0.000 Nucleated RBC % (auto) 0.0 PT INR Sodium 135 Potassium 4.9 Chloride 100 Carbon Dioxide 25 Anion Gap 15 BUN 21 H Creatinine 0.77 Estim Creat Clear Calc 65.2 Estimated GFR > 60 Random Glucose 162 H Lactic Acid Calcium 10.1 D Total Bilirubin 0.8 Direct Bilirubin 0.2 AST 19 ALT 14 Alkaline Phosphatase 99 Total Protein 7.4 Albumin 4.3 Lipase 12 COVID-19 (NISHANT) Negative COVID-19 Clin Com See Note 10/06/22 10/06/22 10/06/22 19:28 20:30 20:30 WBC RBC Hgb Hct MCV MCH MCHC RDW Plt Count MPV Immature Gran % (Auto) Neut % (Auto) Lymph % (Auto) [place] % (Auto) Eos % (Auto) Baso % (Auto) Lymph # (Auto) [place] # (Auto) Eos # (Auto) Baso # (Auto) Abs Immat Gran (auto) Absolute Neuts (auto) Absolute Nucleated RBC Nucleated RBC % (auto) PT 11.0 INR 1.0 Sodium Potassium Chloride Carbon Dioxide Anion Gap BUN Creatinine Estim Creat Clear Calc Estimated GFR Random Glucose Lactic Acid 0.9 0.8 Calcium Total Bilirubin Direct Bilirubin AST ALT Alkaline Phosphatase Total Protein Albumin Lipase COVID-19 (NISHANT) COVID-19 Clin Com Airway Mallampati Class: II TM Dist: >3cm Neck ROM: Full Denture: Upper and Lower Assessment and Plan Assessment Anesthesia Assessment: Anesthesia Plan Discussed and Chart Reviewed Final Anesthetic Review Family History of Problems with Anesthesia: No History of Problems with Anesthesia: No NPO: Yes ASA Class: III and Emergency Final Preanesthetic Review: No Changes in Pt Med Stat, Meds/Allgs Chart Reviewed, Consent Obtained/Reviewed and Anes Risks/Benef Reviewed Patient Risk: Intermediate Procedure Risk: Intermediate Anesthetic Plan Anesthetic Plan: GA Disposition: Standard PACU
[2022-10-07] MEDS: ceFAZolin Sodium 2 GM in 0.9 % Sodium Chloride 100 ML IV (01:26)
--- NOTE | 2022-10-07 04:05 | PM.EVENT ---
Event Note Date of Service: 10/07/22 Event Note: incarcerated right femoral hernia with small bowel. seems viable once reduced sac not opened to visualize but tissue healthy mesh roll secured in femoral canal - lacumar ligament and conjoint tendon and onlay mesh also used over floor and secured with interrupted prolene pt tolerated well and extubated and stable to recovery instrument count - extra retractor - xray on table looked good. Time Spent With Patient Time: Total time managing care of this patient today ____ minutes.
--- NOTE | 2022-10-07 09:16 | P.PNGS_ITS ---
Subjective Subjective Date of Service: 10/08/22 Interval history: Says she feels well this morning Denies significant pain Tolerating clear liquids Wants to eat Physical Exam Vital Signs: Vital Signs: Last Vital Signs Temp 97.2 F 10/07/22 07:34 Pulse 68 10/07/22 07:34 Resp 18 10/07/22 07:34 BP 104/54 L 10/07/22 07:34 Pulse Ox 96 10/07/22 07:34 O2 Del Method 10/07/22 07:34 O2 Flow Rate 2 10/07/22 07:34 BMI result Body Mass Index 26.6 Const: General: comfortable and no acute distress Resp: Effort & Inspection: normal respiratory effort Cardio: Rate: regular rate GI: Other: Dressings on right groin dry Palpation (GI): Soft to palpation, not firm, nontender and no guarding Objective Data Active Medications Albuterol Sulfate (Albuterol Sulfate (0.083%) 2.5 Mg/3 Ml Vial.Neb) 2.5 mg INHALE ONCE PRN PRN Reason: Wheezing Fentanyl (Fentanyl Citrate/Pf 100 Mcg/2 Ml Vial) 50 mcg IVPUSH Q5M PRN; Protocol PRN Reason: Pain, Severe (Pain Scale 7-10) Sodium Chloride (Ns) 1,000 mls @ 100 mls/hr IVCONT .Q10H [facility] Last Admin: 10/07/22 06:35 Dose: 100 mls/hr Documented By: JENNIFER Promethazine HCl 12.5 mg/ (Sodium Chloride) 50.5 mls @ 202 mls/hr IV ONCE PRN PRN Reason: Nausea and Vomiting Cefazolin Sodium 1 gm/ Sodium (Chloride) 50 mls @ 100 mls/hr IV Q8H [facility] Morphine Sulfate (Morphine Sulfate 4 Mg/Ml Cartridge) 4 mg IVPUSH Q4H PRN; Protocol PRN Reason: Pain, Severe (Pain Scale 7-10) Ondansetron HCl (Ondansetron Hcl 4 Mg/2 Ml Vial) 4 mg IVPUSH ONCE PRN PRN Reason: Nausea and Vomiting Ondansetron HCl (Ondansetron Hcl 4 Mg/2 Ml Vial) 4 mg IVPUSH Q6H PRN PRN Reason: Nausea Oxycodone HCl (Oxycodone Hcl Immed Release 5 Mg Tablet) 5 mg PO ONCE PRN PRN Reason: Pain, Severe (Pain Scale 7-10) Oxycodone HCl (Oxycodone Hcl Immed Release 5 Mg Tablet) 5 mg PO Q4H PRN PRN Reason: Pain, Moderate (Pain Scale 4-6 Oxycodone HCl (Oxycodone Hcl Immed Release 5 Mg Tablet) 10 mg PO Q4H PRN PRN Reason: Pain, Severe (Pain Scale 7-10) Sodium Chloride (0.9 % Sodium Chloride Flush 3 Ml Syringe) 3 ml IVFLUSH QSHIFT [facility] Last Admin: 10/07/22 06:15 Dose: Not Given Documented By: ERIKA Non-Admin Reason: Previously Administered Labs 10/06/22 19:28 10/06/22 19:28 Labs: Laboratory Results - last 24 hr 10/06/22 10/06/22 10/06/22 19:28 19:28 19:28 MCV 96.8 MCH 33.7 H MCHC 34.8 RDW 12.0 Plt Count 364 MPV 8.3 L Immature Gran % (Auto) 0.3 Neut % (Auto) 80.5 H Lymph % (Auto) 15.5 L [place] % (Auto) 3.2 Eos % (Auto) 0.2 Baso % (Auto) 0.3 Lymph # (Auto) 1.8 [place] # (Auto) 0.4 Eos # (Auto) 0.0 Baso # (Auto) 0.0 Abs Immat Gran (auto) 0.03 Absolute Neuts (auto) 9.3 H Absolute Nucleated RBC 0.000 Nucleated RBC % (auto) 0.0 PT INR Anion Gap 15 Estim Creat Clear Calc 65.2 Estimated GFR > 60 Random Glucose 162 H Lactic Acid Calcium 10.1 D Total Bilirubin 0.8 Direct Bilirubin 0.2 AST 19 ALT 14 Alkaline Phosphatase 99 Total Protein 7.4 Albumin 4.3 Lipase 12 COVID-19 (NISHANT) Negative COVID-19 Clin Com See Note 10/06/22 10/06/22 10/06/22 19:28 20:30 20:30 MCV MCH MCHC RDW Plt Count MPV Immature Gran % (Auto) Neut % (Auto) Lymph % (Auto) [place] % (Auto) Eos % (Auto) Baso % (Auto) Lymph # (Auto) [place] # (Auto) Eos # (Auto) Baso # (Auto) Abs Immat Gran (auto) Absolute Neuts (auto) Absolute Nucleated RBC Nucleated RBC % (auto) PT 11.0 INR 1.0 Anion Gap Estim Creat Clear Calc Estimated GFR Random Glucose Lactic Acid 0.9 0.8 Calcium Total Bilirubin Direct Bilirubin AST ALT Alkaline Phosphatase Total Protein Albumin Lipase COVID-19 (NISHANT) COVID-19 Clin Com Procedures Date of Service Date of Service: 10/07/22 Progress Note: A&P Assessment and plan (1) Incarcerated inguinal hernia: Status: Deleted Assessment and Plan: Status post repair of incarcerated femoral hernia earlier Looks well Abdomen soft and very benign Advance diet Possibly DC home later on today Pain management Time Spent With Patient Time: Total time managing care of this patient today ____ minutes. Quality Stroke Does the patient have a stroke diagnosis?: No VTE Prior VTE?: No VTE Risk Level:: Surgical - moderate VTE Device Contraindication: N/A - Device Ordered VTE Drug Contraindication: N/A - Med Ordered
--- NOTE | 2022-10-07 09:17 | PHA.MEDREC ---
Pharmacy Consult ? Medication Reconciliation Pharmacy has completed the medication reconciliation.
[2022-10-07] MEDS: 0.9 % Sodium Chloride Flush 3 ML SYRINGE IVFLUSH ×2 (10:15→16:59)
--- NOTE | 2022-10-07 13:37 | PM.EVENT ---
Event Note Date of Service: 10/07/22 Event Note: Says she continues to feel well Tolerating diet well Passing flatus Denies abdominal pain Has appropriate pain on incision Abdomen soft and benign I have convinced her to stay overnight so she can be monitored because of the small bowel involvement with the hernia Doing well overall Time Spent With Patient Time: Total time managing care of this patient today ____ minutes.
--- NOTE | 2022-10-07 13:53 | MHC.CM.PN ---
IMM 10/07/22 Female DX Hernia She is independent. She lives with her Brother and Son. A copy of her HCP was requested. She has been VAXXED x3. DP home self care. Patient will arrange for Sis in-law to transport home.
--- NOTE | 2022-10-07 20:20 | W.PM.OPN ---
Operative Note Operative Note Date of Service: 10/07/22 Narrative: preop diagnosis-- incarcerated femoral hernia postop diagnosis-- incarcerated femoral hernia procedure-- reduction repair of incarcerated femoral hernia - surgeon-- Josias anesthesia-- general the patient is a 67-year-old female who presented with several days of coughing and now a right lower quadrant lump mass which is tender and symptoms consistent with partial obstruction. CT scan physical exam confirmed this mass below the inguinal ligament most likely a femoral hernia. . 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 Plan to go to the OR for repair and reduction she understands and agrees with above plan Procedure-- patient was brought to the operative room and under Anesthesia guidance intubated she had compression stockings patient before induction received preoperative antibiotics. Her abdomen is prepped and draped in standard surgical fashion. A Peace catheter was placed. A right lower quadrant inguinal incision was created and dissection was carried down to the subcutaneous fatty tissue. Mobilizing the fat to the inguinal area the incarcerated knuckle of fat was identified. It was moderate in size and somewhat firm. In attempting to reduce it it would not reduce. It was noted that there was probably also small bowel present. The external oblique fascia was then opened up the standard inguinal hernia repair and dissection was carried out such that the round ligament was clamped and transected. The floor of the inguinal canal was opened up and with mobilization we were able to find where the bowel went through the femoral canal. It was determined to open up the neck of the hernia medially and by doing this we were eventuality able to free up the bowel and reduce it within the peritoneal cavity. The peritoneum was not opened the bowel was not exposed. The tissue looked generally very healthy and there was not any apparent bloody fluid or evidence of ischemia. Attention was now focus to the hold the femoral canal and a rolled up piece of polypropylene mesh was secured through the femoral canal and anchored around the adjacent tissue. This was done with 3-0 nylon sutures. It was also secured on the external aspect of the femoral canal. Careful attention was carried out to not have the mesh come in today rec contact with the femoral vein and in addition a little bit of fatty tissue was used to cover the abdominal part of the femoral canal such that the mesh was not exposed to any bowel. The area was irrigated a little bit the floor of the inguinal canal was then reapproximated with running Vicryl suture to the shelving edge of the lid and when the ligament where there was more sturdy tissue. An overlay mesh was also placed here and anchored to the shelving edge of the inguinal ligament conjoined tendon pubic tubercle. The area was irrigated some local used and then the external fascia closed with running Vicryl and Vita's fascia closed with some interrupted Vicryl and then the skin edge approximated with dolores. At the end of the case all sponge instrument needle counts were correct estimated blood loss was 5 cc no specimen was sent. The Peace catheter was removed and about a L and half of fluid was given. Patient was extubated returned stable to recovery
[2022-10-07] MEDS: oxyCODONE HCl Immed Release 5 MG TABLET 10 MG PO (22:31)
[2022-10-08] VITALS: BP 109/57; PULSE 85; RESP 18; TEMP 37.2
--- NOTE | 2022-10-08 | PC.NURSE ---
Pt was 88% on ra, 2L n/c applied. O2 now mid 90s. Resting comfortably..
[2022-10-08 00:14] VITALS: O2SAT 93
[2022-10-08] MEDS: 0.9 % Sodium Chloride 1,000 ML 100 ML IVCONT (03:20)
[2022-10-08] MEDS: oxyCODONE HCl Immed Release 5 MG TABLET 10 MG PO (03:56)
[2022-10-08 04:24] LABS: Appearance Urine Clear; Color Urine Yellow; Glucose Urine UA Negative (Negative); Leukocyte Esterase Urine Small (1+) (Negative); Nitrite Urine Negative (Negative); Specific Gravity - Urine >= 1.030 (1.005-1.025); UMIC TRIGGER UACC YES; Urine Blood Negative (Negative); Urine Ketones Negative (Negative); Urine Protein Trace mg/dL (Neg-Trace)
[2022-10-08 04:36] LABS: Bacteria Urine None Seen (None Seen); Hyaline Casts Urine 0-2 /LPF (0-2); RBC Urine 0-2 /HPF (0-2); UACC Culture Trigger YES; WBC Urine 0-5 /HPF (0-5)
[2022-10-08 07:44] VITALS: BP 131/69; PULSE 76; RESP 20; TEMP 35.9; O2SAT 96
--- NOTE | 2022-10-08 08:46 | PM.PNGS ---
Subjective Subjective Date of Service: 10/08/22 <Tsering Florez PA-C - Last Filed: 10/08/22 08:51> 10/08/22 <Lorenzo Martinez MD - Last Filed: 10/08/22 12:32> Interval history: Feels very sore this morning. Has not had any solid food but tolerating liquids. Denies flatus or BM. OOB to bathroom. <Tsering Florez PA-C - Last Filed: 10/08/22 08:51> Physical Exam Vital Signs: Vital Signs: Last Vital Signs Temp 96.7 F L 10/08/22 07:44 Pulse 76 10/08/22 07:44 Resp 20 10/08/22 07:44 BP 131/69 10/08/22 07:44 Pulse Ox 96 10/08/22 07:44 O2 Del Method 10/08/22 07:44 O2 Flow Rate 2 10/08/22 07:44 Oxygen Flow Rate 2 10/08/22 00:14 BMI result Body Mass Index 26.6 <Tsering Florez PA-C - Last Filed: 10/08/22 08:51> Const: General: comfortable, no acute distress and alert <Tsering Florez PA-C - Last Filed: 10/08/22 08:51> Orientation/consciousness: patient oriented x3 <Tsering Florez PA-C - Last Filed: 10/08/22 08:51> Resp: Effort & Inspection: normal respiratory effort <Tsering Florez PA-C - Last Filed: 10/08/22 08:51> GI: Inspection: No distended and Yes incision (dressing c/d/i) <Tsering Florez PA-C - Last Filed: 10/08/22 08:51> Palpation (GI): Soft to palpation, Tenderness to palpation present (GI) (incisional), no guarding and not rigid <FLAKITO Fraser Last Filed: 10/08/22 08:51> Percussion: Yes normal to percussion <FLAKITO Fraser Last Filed: 10/08/22 08:51> Skin: General skin exam: no rashes or lesions noted <Tsering Florez PA-C - Last Filed: 10/08/22 08:51> Neuro: General: patient oriented x3 and moves all extremities <Tsering Florez PA-C - Last Filed: 10/08/22 08:51> Extrem: General: Yes no clubbing, cyanosis or edema <Tsering Florez PA-C - Last Filed: 10/08/22 08:51> Objective Data Active Medications Albuterol Sulfate (Albuterol Sulfate (0.083%) 2.5 Mg/3 Ml Vial.Neb) 2.5 mg INHALE ONCE PRN PRN Reason: Wheezing Fentanyl (Fentanyl Citrate/Pf 100 Mcg/2 Ml Vial) 50 mcg IVPUSH Q5M PRN; Protocol PRN Reason: Pain, Severe (Pain Scale 7-10) Sodium Chloride (Ns) 1,000 mls @ 60 mls/hr IVCONT .[id number] [facility] Last Admin: 10/08/22 03:20 Dose: 100 mls/hr Documented By: KAELA Promethazine HCl 12.5 mg/ (Sodium Chloride) 50.5 mls @ 202 mls/hr IV ONCE PRN PRN Reason: Nausea and Vomiting Cefazolin Sodium 1 gm/ Sodium (Chloride) 50 mls @ 100 mls/hr IV Q8H [facility] Last Infusion: 10/08/22 05:01 Dose: 0 mls/hr Documented By: KAELA Morphine Sulfate (Morphine Sulfate 4 Mg/Ml Cartridge) 4 mg IVPUSH Q4H PRN; Protocol PRN Reason: Pain, Severe (Pain Scale 7-10) Ondansetron HCl (Ondansetron Hcl 4 Mg/2 Ml Vial) 4 mg IVPUSH ONCE PRN PRN Reason: Nausea and Vomiting Ondansetron HCl (Ondansetron Hcl 4 Mg/2 Ml Vial) 4 mg IVPUSH Q6H PRN PRN Reason: Nausea Oxycodone HCl (Oxycodone Hcl Immed Release 5 Mg Tablet) 5 mg PO ONCE PRN PRN Reason: Pain, Severe (Pain Scale 7-10) Oxycodone HCl (Oxycodone Hcl Immed Release 5 Mg Tablet) 5 mg PO Q4H PRN PRN Reason: Pain, Moderate (Pain Scale 4-6 Oxycodone HCl (Oxycodone Hcl Immed Release 5 Mg Tablet) 10 mg PO Q4H PRN PRN Reason: Pain, Severe (Pain Scale 7-10) Last Admin: 10/08/22 03:56 Dose: 10 mg Documented By: MARIA ESTHER Sodium Chloride (0.9 % Sodium Chloride Flush 3 Ml [facility]) [facility] Admin: 10/08/22 03:19 Dose: Not Given Documented By: KAELA Non-Admin Reason: IV Running <Tsering Florez PA-C - Last Filed: 10/08/22 08:51> Labs CBC & Chem 7: 10/06/22 19:28 10/06/22 19:28 <Tsering Florez PA-C - Last Filed: 10/08/22 08:51> Labs: Laboratory Results - last 24 hr 10/08/22 03:30 Urine Color Yellow Urine Appearance Clear Urine pH 6.0 Ur Specific [place] >= 1.030 H Urine Protein Trace Urine Glucose (UA) Negative Urine Ketones Negative Urine Blood Negative Urine Nitrite Negative Ur Leukocyte Esterase Small (1+) H Urine RBC 0-2 Urine WBC 0-5 Ur Squamous Epith Cells 3-5 Urine Bacteria None Seen Hyaline Casts 0-2 <Tsering Florez PA-C - Last Filed: 10/08/22 08:51> Microbiology Microbiology Results: Microbiology 10/06/22 20:30 Blood Culture - Preliminary Blood - Venous No growth after 24 hours. 10/06/22 20:30 Blood Culture - Preliminary Blood - Venous No growth after 24 hours. <Tsering Florez PA-C - Last Filed: 10/08/22 08:51> Procedures Date of Service Date of Service: 10/08/22 <Tsering Florez PA-C - Last Filed: 10/08/22 08:51> Progress Note: A&P Assessment and plan (1) Femoral hernia of right side: Status: Acute <Tsering Florez PA-C - Last Filed: 10/08/22 08:51> Assessment and Plan: tolerating diet feels well abd soft and benign incision clean and dry ok to dc home dc instructions given ffup in office <Lorenzo Martinez MD - Last Filed: 10/08/22 12:32> Assessment and Plan: 67 year old female POD #1 s/p repair of incarcerated femoral hernia. She c/o soreness this am and has not eaten solid food. Overall well appearing well with benign abd exam, appropriate post op tenderness and dressings cdi. Will reassess later today, if pain control remains adequate and tolerating solid diet, stable for dc to home today. Patient comfortable with plan. Encouraged OOB/ambulatin and IS use. <Tsering Florez PA-C - Last Filed: 10/08/22 08:51> Time Spent With Patient Time: Total time managing care of this patient today ____ minutes. <Tsering Florez PA-C - Last Filed: 10/08/22 08:51> Quality Stroke Does the patient have a stroke diagnosis?: No <Tsering Florez PA-C - Last Filed: 10/08/22 08:51> VTE Prior VTE?: No <Tsreing Florez PA-C - Last Filed: 10/08/22 08:51> VTE Risk Level:: Surgical - moderate <Tsering Florez PA-C - Last Filed: 10/08/22 08:51> VTE Device Contraindication: N/A - Device Ordered <Tsering Florez PA-C - Last Filed: 10/08/22 08:51> VTE Drug Contraindication: N/A - Med Ordered <Tsering Florez PA-C - Last Filed: 10/08/22 08:51>
[2022-10-08] MEDS: 0.9 % Sodium Chloride Flush 3 ML SYRINGE IVFLUSH (09:09)
[2022-10-08] MEDS: oxyCODONE HCl Immed Release 5 MG TABLET PO (09:14)
--- NOTE | 2022-10-08 09:52 | MHC.CM.PN ---
IMM 10/07/22 Female 67 S/P Hernia repair is discharged home today self care. She has arranged for her sister in law to provide transportation home.
--- NOTE | 2022-10-08 12:21 | HO.POSTANES ---
Post Anesthesia Evaluation Post Anesthesia Evaluation Vital Signs: Vital Signs Temp Pulse Resp BP Pulse Ox O2 Del Method O2 Flow Rate 10/08/22 07:44 96.7 F L 76 20 131/69 96 Nasal Cannula 2 Anesthesia: General Endotracheal-GETA Mental Status: Awake Pain Control: Satisfactory (complains of soreness) Nausea/Vomiting: Mild Hydration: Adequate Anesthesia-Related Issues: No Anes. Related Issues
--- NOTE | 2022-10-08 12:36 | PM.DS ---
DS: Providers Provider Date of Service: 10/08/22 Date of admission: 10/06/22 23:31 Date of discharge: 10/08/22 Primary care physician: Martell Mackenzie MD Attending physician on admission: Malika Ferrara Attending physician on discharge: Lorenzo Martinez DS: Diagnosis Discharge Diagnosis (1) Incarcerated inguinal hernia: Status: Deleted DS: Summary Hospital Course Hospital Course: HPI AT ADMISSION: Gely Lynn is a 67 year old female who over the last several weeks as been complaining of a lot of coughing unsure etiology. She is a smoker and smokes about a pack at cigarettes every 2 days. This morning she woke up and started having more abdominal pain some nausea and this got worse so she came into the emergency room. Here a lump was noted in her right groin CT scan shows findings incarcerated inguinal hernia with dilated small bowel. In the emergency room the ER doctor attempted to reduce this by sedating her but unfortunately it was unsuccessful. She still is complaining of pain in the groin area. She has never had any surgery other than hysterectomy she says which was carried out laparoscopically. HOSPITAL COURSE: The patient was admitted to the surgical service for further treatment of the incarcerated hernia. It was recommended to proceed with repair of the incarcerated inguinal hernia with possible bowel resection and ostomy. She agreed to proceed. She was taken to the OR that night. On 10/07/22, repair of incarcerated right femoral hernia with mesh was performed by Dr. Ferrara without complication. Intraop findings included- viable once reduced, hernia sac not opened to visualize bowel but tissue healthy. She tolerated the procedure well. The patient had an uncomplicated recovery course. Her pain was well controlled post operatively on PO analgesics. She was tolerating a solid diet. She was ambulating without difficulty. She began passing flatus. Her abdomen was benign and soft with mild incisional tenderness. Incision was clean and dry. She felt ready for discharge and was discharged to home on 10/08/22 in stable condition. She is to follow up in the office in 2 weeks. Status at Discharge Functional status at discharge: independent ambulation Overall status at discharge: patient is progressing back to baseline Time Spent with Patient Time attestation: Total time managing care of this patient today ____ minutes. Discharge coordination time: Less than 30 minutes Quality: Safe Use of Opioids Does Pt have an Active Cancer Diagnosis on the Problem List?: No Quality: Stroke Does the patient have a stroke diagnosis?: No Physical Exam Vital Signs: Vital Signs: Last Vital Signs Temp 96.7 F L 10/08/22 07:44 Pulse 76 10/08/22 07:44 Resp 20 10/08/22 07:44 BP 131/69 10/08/22 07:44 Pulse Ox 96 10/08/22 07:44 O2 Del Method 10/08/22 07:44 O2 Flow Rate 2 10/08/22 07:44 Oxygen Flow Rate 2 10/08/22 00:14 BMI result Body Mass Index 26.6 Const: General: comfortable, no acute distress and alert Orientation/consciousness: patient oriented x3 Resp: Effort & Inspection: normal respiratory effort GI: Inspection: No distended and Yes incision (clean) Palpation (GI): Soft to palpation, Tenderness to palpation present (GI) (mild, incisional), no guarding and not rigid Skin: General skin exam: no rashes or lesions noted Neuro: General: patient oriented x3 DS: Data Data Completed and Pending Labs on day of discharge: Laboratory Results - last 24 hr 10/08/22 03:30 Urine Color Yellow Urine Appearance Clear Urine pH 6.0 Ur Specific [place] >= 1.030 H Urine Protein Trace Urine Glucose (UA) Negative Urine Ketones Negative Urine Blood Negative Urine Nitrite Negative Ur Leukocyte Esterase Small (1+) H Urine RBC 0-2 Urine WBC 0-5 Ur Squamous Epith Cells 3-5 Urine Bacteria None Seen Hyaline Casts 0-2 Preliminary micro results at discharge 10/06/22 20:30 Blood Culture - Preliminary Blood - Venous No growth after 24 hours. 10/06/22 20:30 Blood Culture - Preliminary Blood - Venous No growth after 24 hours. Discharge Plan Discharge Anticipated Discharge Date/Time: 10/08/22 10:53 Patient Disposition: Home, Self-Care Discharge Diagnosis: incarcerated femoral hernia s/p repair of femoral hernia Referrals: Martell Mackenzie MD [Primary Care Provider] - 1 Week Lorenzo Martinez MD [Physician] - 2 Weeks Discharge Medications: New oxycodone-acetaminophen [Percocet] 5-325 mg tablet 1 tab PO Q4-6H PRN (Reason: pain) Qty: 20 0RF Rx Instructions: Partial Fill upon patient request. ibuprofen 600 mg tablet 600 mg PO Q6H PRN (Reason: pain) Qty: 30 0RF Continued lovastatin 20 mg tablet 20 mg PO DAILY 90 Days Qty: 90 0RF lisinopril 20 mg tablet 20 mg PO DAILY 90 Days Qty: 90 0RF Discharge Orders: Discharge Order (Routine); Ordered 10/08/22 Ordered By: Tsering Florez Diet: Advance to usual diet Activity on Discharge: No heavy lifting Stand Alone Forms: Patient Portal Discharge page Activity Restrictions/Additional Instructions: If the incision area is tender, you may apply an ice pack for short intervals (No more than 20 minutes on, followed by at least 20 minutes off). Do not apply heat. Do not use creams, lotions, or topical antibiotics unless instructed to do so by your surgeon. These can cause infection or allergic reaction. Ok to shower. Remove dressing prior and replace. You have dolores closing your incision. These will need to be removed in 10-14 days. Follow up in office with in 2 weeks. ([phone]) No heavy lifting (>10-20lbs) or strenuous activity! Call Your Doctor If: -Your temperature exceeds 101.5? F -You experience excessive pain or swelling -You have an unexpected reaction to medication -You have excessive bleeding -You experience continued vomiting/nausea -Your incision begins to separate -Your incision shows signs of infection such as increased redness, swelling, excessive pain, drainage (light blood or clear fluid is normal) or heat Care Plan Goals: Return to baseline health and gradual return to activity following recovery period. Health Concerns: incarcerated femoral hernia Plan of Treatment: s/p repair of femoral hernia Pain control Advance diet F/u in office Assessment: Doing well post op
== END 2022-10-08 13:51 | disposition home or self-care (01) | DRG 352 ==
LOC: HO.ED 23:09 → HO.EDOVER 23:38 → HO.IMC 10-07 05:36
PROVIDERS: Nurse Practitioner Family; Admitting Provider Surgery; Emergency Provider Emergency Medicine; PCP Internal Medicine; Visit Provider Surgery
PROC: 0YU70JZ Supplement Right Femoral Region with Synthetic Substitute, Open Approach (ICD-10-PCS; principal; 2022-10-07 12:30)
DX: K40.30 Unilateral inguinal hernia, with obstruction, without gangrene, not specified as recurrent (principal); I10 Essential (primary) hypertension; F17.210 Nicotine dependence, cigarettes, uncomplicated; Z71.6 Tobacco abuse counseling; E78.5 Hyperlipidemia, unspecified; J44.9 Chronic obstructive pulmonary disease, unspecified; Z20.822 Contact with and (suspected) exposure to COVID-19; Z79.899 Other long term (current) drug therapy
CPT/HCPCS: 49553; 36415; 74018; 74177; 80048; 80076; 81001; 83605; 83690; 85025; 85610; 87040; 87086; 87635; 93005; 99285; C1781; J0690; J1100; J1170; J1885; J2060; J2250; J2405; J3010; Q9967

== ENCOUNTER → 2022-10-13 14:33 | Outpatient (BNVA) | payer MEDICARE, SELFPAY | PROVIDERS: PCP Internal Medicine; Visit Provider Surgery | DX: Z13.89 Encounter for screening for other disorder (principal) ==

== ENCOUNTER → 2022-10-27 12:50 | Outpatient (BNVA) | payer MEDICARE, SELFPAY | PROVIDERS: PCP Internal Medicine; Visit Provider Surgery | DX: Z13.89 Encounter for screening for other disorder (principal) ==

== ENCOUNTER 2022-12-01 08:02 | Outpatient (REF) | payer MEDICARE, SELFPAY ==
--- NOTE | ~2022-12-01 | MM_ITS ---
EXAMINATION: MM SCREENING DIGITAL BREAST TOMOSYNTHESIS, BILATERAL CLINICAL INFORMATION: Screening. Asymptomatic. The lifetime risk of breast cancer based on the Tyrer-Cuzick Model is 7%. COMPARISON: Mammography: 03/10/2021, 07/06/2019, 06/15/2018 TECHNIQUE: Digital breast tomosynthesis is performed in both the craniocaudal and mediolateral oblique views along with computer-aided detection (CAD). Synthesized 2D images are generated from the tomosynthesis. FINDINGS: The breasts are heterogeneously dense, which may obscure small masses (ACR BI-RADS breast composition Category c). The left MLO tomography shows subtle round asymmetric density upper quadrant approximately 8 cm from nipple, possibly incompletely compressed glandular tissue or summation artifact. Patient will be recalled for additional imaging. The remainder of the bilateral breasts show no significant mass or architectural abnormality or developing density. No abnormal calcifications. The axilla and skin contours are unremarkable. MM/MM tomosynthesis screening BI IMPRESSION: Left: -Subtle rounded asymmetric density upper breast on MLO tomography, possibly incompletely compressed glandular tissue or summation artifact. Right: -No mammographic evidence of malignancy. ASSESSMENT: BI-RADS 0: Incomplete - Need Additional Imaging Evaluation RECOMMENDATION: 1. Additional views left breast (spot MLO, standard ML). 2. Targeted ultrasound if warranted after review of the additional views. 3. Radiology department staff will contact the patient for additional imaging. This patient's information was entered into a reminder system with a target due date for their next mammogram.
== END 2022-12-01 08:03 | disposition home or self-care (01) ==
LOC: HO.MAMMO 08:02
PROVIDERS: Visit Provider Internal Medicine
DX: Z12.31 Encounter for screening mammogram for malignant neoplasm of breast (principal)
CPT/HCPCS: 77063; 77067

== ENCOUNTER 2022-12-16 13:42 | Outpatient (REF) | payer MEDICARE, SELFPAY ==
--- NOTE | ~2022-12-16 | MM_ITS ---
EXAMINATION: MM DIAGNOSTIC DIGITAL BREAST TOMOSYNTHESIS, LEFT CLINICAL INFORMATION: Recall from screening for asymmetric density upper left breast on MLO tomography, suspected summation artifact or incompletely compressed glandular tissue. COMPARISON: Prior mammography exams, most recent 12/01/2022. TECHNIQUE: Digital breast tomosynthesis is performed. 2D images are generated from the tomosynthesis. The following views are obtained: Spot MLO, standard ML FINDINGS: The breasts are heterogeneously dense, which may obscure small masses (ACR BI-RADS breast composition Category c). The additional views show fibroglandular densities similar to prior studies. There is no developing density or interval mass or architectural abnormality. Results are discussed with the patient at time of visit. MM/MM tomosynthesis added views L IMPRESSION: Additional views show no significant changes from prior studies. ASSESSMENT: BI-RADS 2: Benign RECOMMENDATION: Routine annual mammography screening. This patient's information was entered into a reminder system with a target due date for their next mammogram.
== END 2022-12-16 13:43 | disposition home or self-care (01) ==
LOC: HO.MAMMO 13:42
PROVIDERS: PCP Internal Medicine; Visit Provider Internal Medicine
DX: R92.2 Inconclusive mammogram (principal)
CPT/HCPCS: 77061; 77065

== ENCOUNTER 2023-04-12 09:26 | Outpatient (AMB) | payer MEDICARE, SELFPAY ==
--- NOTE | 2023-04-12 09:32 | MHC.PC.OV ---
Vital Signs 04/12/23 09:33 Height 5 ft 3 in Weight 140 lb 2 oz BMI 24.8 BP 154/90 H Blood Pressure Location Rt brachial Position Sitting Pulse 98 Pulse Source Pulse Oximeter Pulse Oximetry (%) 91 L Oxygen Delivery Method Room Air Intake Visit Reasons: PE Allergies No Known Allergies Allergy (Verified 04/12/23 09:34) Medication List - Last Reconciled 04/12/23 by Martell Mackenzie MD ibuprofen 600 mg PO Q6H PRN lisinopril 20 mg PO DAILY 90 days lovastatin 20 mg PO DAILY 90 days Tobacco use date assessed: 04/12/23 Fall risk assessment: No Falls in past year Last assessed Fall Risk: 04/12/23 Dental Screening Dental Screen Date: 04/12/23 Did you have a dental visit in the last 12 months?: No Did you have a dental problem in the last 6 months where you did not have access to dental care?: No Was dental information given to patient?: No HPI PE HPI Details Patient is 67-year-old female came in today for physical examination Her blood pressure is elevated currently she is on lisinopril 40 mg I have changed the medication to losartan 100-chlorthalidone 25 mg Patient is to call me in 7 days with reading she have a blood pressure monitor at home but not monitoring it. Continue with lovastatin 20 mg for lipid control Mammogram is up-to-date December of this year Patient had complete hysterectomy secondary to uterine prolapse Colonoscopy is due patient would like to see Dr. Fleming Lab order placed to be done fasting Follow-up 3 months Patient have feel tandem walk today And declined breast exam [facility] Medical History Hypertension, essential Lipid disorder Tobacco abuse Surgical History History of femoral hernia repair (10/07/22) History of vaginal hysterectomy Family History Father Lung cancer Smoker Mother Breast cancer Dementia Brother Myocardial infarction Brother No problems noted. Sister No problems noted. Sister No problems noted. Sister No problems noted. Son No problems noted. Social History Household Members: Family Housing: Apartment Do you presently have visiting nurse or other home services: No Alcohol intake: current Alcohol intake frequency: holidays/special occasions only Alcohol type: beer and hard liquor Patient Tobacco Use Status: Current everyday Tobacco user Tobacco use type: Cigarette Cigarettes Per Day: 4 e-Cigarette/Vaping Use: Never Used service: No Current occupational status: employed Cognitive needs: No Hearing needs: No Vision needs: No Questionnaire PHQ-9 Over the last 2 weeks, how often have you been bothered by any of the following problems? 1. Little interest or pleasure in doing things: not at all 2. Feeling down, depressed, or hopeless: not at all 3. Trouble falling or staying asleep, or sleeping too much: not at all 4. Feeling tired or having little energy: not at all 5. Poor appetite or overeating: not at all 6. Feeling bad about yourself - or that you are a failure or have let yourself or your family down: not at all 7. Trouble concentrating on things, such as reading the newspaper or watching television: not at all 8. Moving or speaking so slowly that other people could have noticed. Or the opposite - being so fidgety or restless that you have been moving around a lot more than usual: not at all 9. Thoughts that you would be better off or of hurting yourself in some way: not at all Total score: 0 Depression Screening Interpretation: Negative 57491 - PHQ-9 Billing: Yes Source: Developed by Drs. Gilbert Nino, Ramona Tan, Betito Lopez and colleagues, with an educational ken from [employer]. Thrive Questionnaire Date Thrive assessed: 04/12/23 I am a: Patient What is your living situation today?: I have a steady place to live Within the past 12 months, did the food you bought not last and you didn't have the money to get more?: Never true Within the past 12 months, did you worry whether your food would run out before you got money to buy more?: Never true Do you have trouble paying for medicines?: No Do you have trouble getting transportation to medical appointments?: No Do you have trouble paying your heating and electricity bill?: No Do you have trouble taking care of your child, family member or friend?: No Do you have trouble with day-to-day activities such as bathing, preparing meals, shopping, managing finances, etc.?: No Are you currently unemployed and looking for a job?: No Are you interested in more education?: No AUDIT C Alcohol Use Questionnaire (AUDIT-C) 1. How often do you have a drink containing alcohol?: 2-3 times a week 2. How many drinks containing alcohol do you have on a typical day when you are drinking?: 1 or 2 3. How often do you have six or more drinks on one occasion?: Never Total Score: 3 Score Reviewed/Action Taken: Yes KATHERIN-7 AMB Questionnaire KATHERIN-7 Date KATHERIN - 7 assessed: 04/12/23 Feeling nervous, anxious, or on edge: 0 = Not at all Not being able to stop or control worryin = Not at all Worrying too much about different things: 0 = Not at all Trouble relaxin = Not at all Being so restless that it is hard to sit still: 0 = Not at all Becoming easily annoyed or irritable: 0 = Not at all Feeling afraid as if something awful might happen: 0 = Not at all Total KATHERIN-7 score (0-4 normal; 5-9 mild; 10-14 moderate; 15-21 severe): 0 Source: Developed by Drs. Gilbert Nino, Ramona Tan, Betito Lopez and colleagues, with an educational ken from [employer]. KATHERIN-7 Assessment Billing KATHERIN-7 Assessment Tool: KATHERIN-7 Assessment 33045 Review of Systems Const Denies chills, Denies fever(s) and Denies headache(s) Eyes Denies blurry vision ENT Denies headache(s), Denies nasal discharge, Denies nasal obstruction, Denies odynophagia and Denies sinus pain Card Denies chest pain at rest and Denies chest pain with activity Resp Denies cough and Denies hemoptysis GI Denies diarrhea, Denies odynophagia, Denies vomiting and Denies hematemesis Reports as per HPI Musc Denies abnormal gait Skin/Breast Reports as per HPI Neuro Denies Neuro-related abnormal movements, Denies Abnormal speech present, Denies abnormal gait, Denies headache(s) and Denies Sensory deficit (Neuro) Psych Denies mood swings and Denies paranoia Endo Reports as per HPI Yovany/Lymph Reports as per HPI Aller/Immun Reports as per HPI Physical exam (Primary Care) Vital Signs: Last Vital Signs Pulse 98 04/12/23 09:33 BP 154/90 H 04/12/23 09:33 Pulse Ox 91 L 04/12/23 09:33 Oxygen Delivery Method Room Air 04/12/23 09:33 BMI result Body Mass Index 24.8 Tobacco/Smoking Status: Tobacco use Status Tobacco use date assessed 04/12/23 04/12/23 09:34 Patient Tobacco Use Status Current everyday Tobacco 04/12/23 09:34 Tobacco use type Cigarette 04/12/23 09:34 e-Cigarette/Vaping Use Never Used 04/12/23 09:34 PHQ-9: PHQ-9 Score PHQ-9: Total score 0 04/12/23 10:03 Depression Screening Interpretation: Negative Thrive Assessment: Date of Thrive Assessment Date Thrive assessed 04/12/23 04/12/23 09:50 Const General: cooperative, comfortable and no acute distress Orientation/consciousness: patient oriented x3 HENMT Head: Yes normocephalic and Yes atraumatic Eyes General: appearance normal, both eyes and all related structures Pupils: Equal, round and reactive pupils present EOM: EOMs intact bilaterally Neck Neck: Yes supple and No lymphadenopathy Thyroid: Thyroid normal Lymphatic: no lymphadenopathy noted Resp Effort & Inspection: normal respiratory effort and able to speak in complete sentences Auscultation: clear to auscultation bilaterally Cardio Heart sounds: S1 normal heart sound present and S2 normal heart sound present GI Palpation (GI): Soft to palpation and nontender Auscultation: normal bowel sounds General: Yes no CVA tenderness Back/Spine/Pelvis Back: no CVA tenderness Skin General skin exam: elasticity normal and turgor normal Neuro General: patient oriented x3 and gait normal Cranial nerves: Yes Equal, round and reactive pupils present Speech: No Abnormal speech present Sensory Exam: No Sensory deficit (Neuro) Coordination: Romberg test negative Extrem General: Yes normal exam except as noted and No edema Assessment and Plan Assessment & Plan (1) Encounter for general adult medical examination with abnormal findings: Code(s): Z00.01 - Encounter for general adult medical examination with abnormal findings (2) Lipid disorder: Code(s): E78.9 - Disorder of lipoprotein metabolism, unspecified (3) Hypertension, essential: Code(s): I10 - Essential (primary) hypertension (4) Tobacco abuse: Code(s): Z72.0 - Tobacco use (5) Abnormal tandem walk: Code(s): R26.9 - Unspecified abnormalities of gait and mobility (6) Colon cancer screening: Code(s): Z12.11 - Encounter for screening for malignant neoplasm of colon Plan Patient is 67-year-old female came in today for physical examination Her blood pressure is elevated currently she is on lisinopril 40 mg I have changed the medication to losartan 100-chlorthalidone 25 mg Patient is to call me in 7 days with reading she have a blood pressure monitor at home but not monitoring it. Continue with lovastatin 20 mg for lipid control Mammogram is up-to-date December of this year Patient had complete hysterectomy secondary to uterine prolapse Colonoscopy is due patient would like to see Dr. Fleming Lab order placed to be done fasting Follow-up 3 months Patient have feel tandem walk today And declined breast exam Orders: Orders Vitamin B12 Today E78.9 - Disorder of lipoprotein metabolism, unspecified, I10 - Essential (primary) hypertension, R26.9 - Unspecified abnormalities of gait and mobility, Z00.01 - Encounter for general adult medical examination with abnormal findings, Z72.0 - Tobacco use Comprehensive [place]. Panel Fast Today E78.9 - Disorder of lipoprotein metabolism, unspecified, I10 - Essential (primary) hypertension, R26.9 - Unspecified abnormalities of gait and mobility, Z00.01 - Encounter for general adult medical examination with abnormal findings, Z72.0 - Tobacco use Lipid Panel Today E78.9 - Disorder of lipoprotein metabolism, unspecified, I10 - Essential (primary) hypertension, R26.9 - Unspecified abnormalities of gait and mobility, Z00.01 - Encounter for general adult medical examination with abnormal findings, Z72.0 - Tobacco use TSH reflex Free T4 Today E78.9 - Disorder of lipoprotein metabolism, unspecified, I10 - Essential (primary) hypertension, R26.9 - Unspecified abnormalities of gait and mobility, Z00.01 - Encounter for general adult medical examination with abnormal findings, Z72.0 - Tobacco use Vitamin D 25-OH (D2 and D3) Today E78.9 - Disorder of lipoprotein metabolism, unspecified, I10 - Essential (primary) hypertension, R26.9 - Unspecified abnormalities of gait and mobility, Z00.01 - Encounter for general adult medical examination with abnormal findings, Z72.0 - Tobacco use Complete Blood Count Auto Diff Today E78.9 - Disorder of lipoprotein metabolism, unspecified, I10 - Essential (primary) hypertension, R26.9 - Unspecified abnormalities of gait and mobility, Z00.01 - Encounter for general adult medical examination with abnormal findings, Z72.0 - Tobacco use Referrals Gastroenterology Referral Z12.11 - Encounter for screening for malignant neoplasm of colon Medications: New losartan-hydrochlorothiazide 100-25 mg 1 tab PO DAILY 90 tabs 0RF Discontinued lisinopril Discontinued Reason: Doctor's Order 20 mg PO DAILY 90 days 90 tabs 0RF Coding Level of Care Code Est Pt Prev Care >65y(63763) Diagnoses Encounter for general adult medical examination with abnormal findings Z00.01 Lipid disorder E78.9 Hypertension, essential I10 Tobacco abuse Z72.0 Abnormal tandem walk R26.9 Colon cancer screening Z12.11 Additional Codes KATHERIN-7 Assessment Billing - KATHERIN-7 Assessment Tool: KATHERIN-7 Assessment 11141 ([id number])
[2023-04-12 09:33] VITALS: BP 154/90; PULSE 98; O2SAT 91; BMI 24.8
== END 2023-04-12 09:55 | disposition home or self-care (01) ==
PROVIDERS: Visit Provider Internal Medicine
DX: Z00.01 Encounter for general adult medical examination with abnormal findings (principal); E78.9 Disorder of lipoprotein metabolism, unspecified; I10 Essential (primary) hypertension; Z72.0 Tobacco use; R26.9 Unspecified abnormalities of gait and mobility
CPT/HCPCS: 99397

== ENCOUNTER 2023-04-27 06:28 | Outpatient (REF) | payer MEDICARE, SELFPAY ==
[2023-04-27 11:15] LABS: MANUAL DIFF FLAG NO
[2023-04-27 11:43] LABS: Basophils Absolute Auto 0.1 X10*3/uL (0.0-0.2); Basophils Percent Auto 0.6 % (0-2); Eosinophils Absolute Auto 0.1 X10*3/uL (0.0-0.4); Eosinophils Percent Auto 1.5 % (0-4); Hematocrit 45.2 % (37.0-47.0); Hemoglobin 15.5 g/dl (12.0-16.0); Imm Gran Abs Auto 0.02 X10*3/uL (0.00-0.03); Imm Gran Pct Auto 0.2 % (0.0-0.4); Lymphocytes Absolute Auto 3.3 X10*3/uL (1.2-4.9); Lymphocytes Percent Auto 41.5 % (20-40); Mean Corpuscular HGB Conc 34.3 g/dl (31.0-35.0); Mean Corpuscular Hemoglobin 33.8 pg (27.0-33.0); Mean Corpuscular Volume 98.5 fL (80.0-98.0); Mean Platelet Volume 9.4 fL (9.4-12.3); Monocytes Absolute Auto 0.7 X10*3/uL (0.1-1.2); Monocytes Percent Auto 8.2 % (2-11); Neutrophils Absolute Auto 3.9 x10*3/uL (2.0-8.3); Platelet Count 295 X10*3/uL (160-400); Red Blood Count 4.59 X10*6/uL (4.20-5.50); Red Cell Distribution Width 12.2 % (11.0-16.0); White Blood Count 8.1 X10*3/uL (4.8-10.8)
[2023-04-27 12:23] LABS: Alanine Aminotransferase 18 U/L (0-31); Albumin Level 4.3 g/dL (3.5-5.0); Alkaline Phosphatase 82 U/L (39-117); Anion Gap 12 (12-20); Aspartate Amino Transferase 25 U/L (5-31); Bilirubin Total 0.7 mg/dL (0.0-1.0); Blood Urea Nitrogen 17 mg/dL (9-16); Calcium 10.2 mg/dL (8.4-10.2); Carbon Dioxide 27 mmol/L (22-29); Chloride 97 mmol/L (96-108); Cholesterol 215 mg/dL (<200); Estimated Glomerular Filt Rate > 60; Glucose Fasting 95 mg/dL (60-99); HDL Cholesterol 70 mg/dL (>40); LDL Cholesterol Calculated 128 mg/dL (<100); Potassium 4.7 mmol/L (3.3-5.1); Sodium 131 mmol/L (135-145); TSH reflex Free T4 2.13 uIU/mL (0.32-4.0); Total Protein 7.4 g/dL (6.5-8.0); Triglycerides 86 mg/dL (<150)
[2023-04-27 12:38] LABS: Vitamin B12 382 pg/mL (200-900)
[2023-05-02 14:44] LABS: Vitamin D 25-OH, D2 <4 ng/mL; Vitamin D 25-OH, D3 23 ng/mL; Vitamin D 25-OH, Total 23 ng/mL (30-100)
== END 2023-04-27 06:29 | disposition home or self-care (01) ==
LOC: HO.HMGCLDS 06:28
PROVIDERS: PCP Internal Medicine; Visit Provider Internal Medicine
DX: Z00.01 Encounter for general adult medical examination with abnormal findings (principal); E78.9 Disorder of lipoprotein metabolism, unspecified; I10 Essential (primary) hypertension; R26.9 Unspecified abnormalities of gait and mobility; Z72.0 Tobacco use
CPT/HCPCS: 36415; 80053; 80061; 82306; 82607; 84443; 85025

== ENCOUNTER 2023-07-13 08:37 | Outpatient (AMB) | payer MEDICARE, SELFPAY ==
--- NOTE | 2023-07-13 08:40 | A.OFFPC_ITS ---
Vital Signs 07/13/23 08:45 07/13/23 08:58 Height 53 ft Weight 141 lb 6 oz BMI 0.2 BP 124/62 Blood Pressure Location Rt brachial Position Sitting Pulse 120 H 107 H Pulse Source Pulse Oximeter Pulse Oximeter Pulse Oximetry (%) 85 L 96 Oxygen Delivery Method Room Air Intake Visit Reasons: 3m f/u Allergies No Known Allergies Allergy (Verified 04/12/23 09:34) Medication List - Last Reconciled 07/13/23 by Martell Mackenzie MD losartan-hydrochlorothiazide 100-25 mg 1 tab PO DAILY lovastatin 20 mg PO DAILY 90 days Tobacco use date assessed: 07/13/23 Fall risk assessment: No Falls in past year Last assessed Fall Risk: 07/13/23 Dental Screening Dental Screen Date: 07/13/23 Did you have a dental visit in the last 12 months?: No Did you have a dental problem in the last 6 months where you did not have access to dental care?: No Was dental information given to patient?: Patient has dentist HPI 3m f/u HPI Details Patient is 68-year-old female smoker with COPD However she is not using any inhalers and do not want any I convinced her to have at least rescue inhaler today and I will be sending updraft machine with DuoNeb vials Just in case if she started feeling shortness of breath she does not want a see clinical support specialist as well She recently had chest cold and is recovering from that When she came in her pulse ox was registering 85 but it is because of cold fingers We checked again and it is 96% on room air now with pulse of 107 Blood pressure is controlled at 124/62 She is taking losartan hydrochlorothiazide 100-25 And lovastatin 20 for lipid control Vitamin-D level is low I have sent supplement Her sodium is 131 which is a chronic problem for the patient [facility] Medical History Lipid disorder Hypertension, essential Tobacco abuse Surgical History History of femoral hernia repair (10/07/22) History of vaginal hysterectomy Family History Father Lung cancer Smoker Mother Breast cancer Dementia Brother Myocardial infarction Brother No problems noted. Sister No problems noted. Sister No problems noted. Sister No problems noted. Son No problems noted. Social History Household Members: Family Housing: Apartment Do you presently have visiting nurse or other home services: No Alcohol intake: current Alcohol intake frequency: holidays/special occasions only Alcohol type: beer and hard liquor Patient Tobacco Use Status: Current everyday Tobacco user Tobacco use type: Cigarette Cigarettes Per Day: 4 e-Cigarette/Vaping Use: Never Used service: No Current occupational status: employed Cognitive needs: No Hearing needs: No Vision needs: No Questionnaire PHQ-9 Over the last 2 weeks, how often have you been bothered by any of the following problems? 1. Little interest or pleasure in doing things: not at all 2. Feeling down, depressed, or hopeless: not at all 3. Trouble falling or staying asleep, or sleeping too much: not at all 4. Feeling tired or having little energy: not at all 5. Poor appetite or overeating: not at all 6. Feeling bad about yourself - or that you are a failure or have let yourself or your family down: not at all 7. Trouble concentrating on things, such as reading the newspaper or watching television: not at all 8. Moving or speaking so slowly that other people could have noticed. Or the opposite - being so fidgety or restless that you have been moving around a lot more than usual: not at all 9. Thoughts that you would be better off or of hurting yourself in some way: not at all Total score: 0 Depression Screening Interpretation: Negative Depression Screening Done: Yes 02893 - PHQ-9 Billing: Yes Source: Developed by Drs. Gilbert Nino, Ramona Tan, Betito Lopez and colleagues, with an educational ken from [address] Thrive Questionnaire Date Thrive assessed: 04/12/23 KATHERIN-7 AMB Questionnaire KATHERIN-7 Date KATHERIN - 7 assessed: 04/12/23 Source: Developed by Drs. Gilbert Nino, Ramona Tan, Betito Lopez and colleagues, with an educational ken from [address]. Review of Systems Const Denies chills and Denies fever(s) ENT Denies epistaxis and Denies nasal discharge Card Denies chest pain Resp Denies hemoptysis GI Denies diarrhea and Denies nausea Skin/Breast Denies rash Neuro Reports no additional complaints Psych Reports no additional complaints Endo Reports no additional complaints Physical exam (Primary Care) Vital Signs: Last Vital Signs Pulse 107 H 07/13/23 08:58 BP 124/62 07/13/23 08:45 Pulse Ox 96 07/13/23 08:58 Oxygen Delivery Method Room Air 07/13/23 08:45 BMI result Body Mass Index 0.2 Tobacco/Smoking Status: Tobacco use Status Tobacco use date assessed 07/13/23 07/13/23 08:45 Patient Tobacco Use Status Current everyday Tobacco 07/13/23 08:42 Tobacco use type Cigarette 07/13/23 08:42 e-Cigarette/Vaping Use Never Used 07/13/23 08:42 Are you ready to quit: No Tobacco cessation counseling provided: Yes Relapse Prevention: discussed the importance of a supportive environment CPT code: Less than 3 minutes PHQ-9: PHQ-9 Score PHQ-9: Total score 0 07/13/23 08:59 Depression Screening Interpretation: Negative Thrive Assessment: Date of Thrive Assessment Date Thrive assessed 04/12/23 07/13/23 08:42 Const General: cooperative, comfortable and no acute distress Orientation/consciousness: patient oriented x3 HENMT Head: Yes normocephalic Eyes General: appearance normal, both eyes and all related structures Neck Neck: Yes supple Resp Effort & Inspection: normal respiratory effort, no cough and no stridor Cardio Rhythm: regular rhythm Heart sounds: S1 normal heart sound present and S2 normal heart sound present Skin General skin exam: turgor normal Neuro General: patient oriented x3, tone normal and moves all extremities Extrem Right lower extremity: no edema Left lower extremity: no edema Assessment and Plan Assessment & Plan (1) COPD (chronic obstructive pulmonary disease): Code(s): J44.9 - Chronic obstructive pulmonary disease, unspecified Qualifiers: COPD type: emphysema Emphysema type: panlobular Qualified Code(s): J43.1 - Panlobular emphysema (2) Lipid disorder: Code(s): E78.9 - Disorder of lipoprotein metabolism, unspecified (3) Hypertension, essential: Code(s): I10 - Essential (primary) hypertension (4) Tobacco abuse: Code(s): Z72.0 - Tobacco use Plan Patient is 68-year-old female smoker with COPD However she is not using any inhalers and do not want any I convinced her to have at least rescue inhaler today and I will be sending upd raft machine with DuoNeb vials Just in case if she started feeling shortness of breath she does not want a see clinical support specialist as well She recently had chest cold and is recovering from that When she came in her pulse ox was registering 85 but it is because of cold fingers We checked again and it is 96% on room air now with pulse of 107 Blood pressure is controlled at 124/62 She is taking losartan hydrochlorothiazide 100-25 And lovastatin 20 for lipid control Vitamin-D level is low I have sent supplement Her sodium is 131 which is a chronic problem for the patient Medications: New cholecalciferol (vitamin D3) 25 mcg PO DAILY 90 caps 0RF 90 days ipratropium-albuterol 0.5 mg-3 mg(2.5 mg base)/3 mL 3 mL inhalation Q6-8H PRN 90 mL 0RF wheezing 30 days [Updraft machine] As directed 1 ea 0RF J44.9 - Chronic obstructive pulmonary disease, unspecified albuterol sulfate 90 mcg/actuation (ProAir HFA) 1 inh inhalation QID PRN 18 grams 0RF shortness of breath or wheezing 30 days Refilled losartan-hydrochlorothiazide 100-25 mg 1 tab PO DAILY 90 tabs 0RF lovastatin 20 mg PO DAILY 90 tabs 0RF 90 days Coding Level of Care Code Est Pt Level 4 (13532) Diagnoses Panlobular emphysema J43.1 COPD type: emphysema Emphysema type: panlobular Lipid disorder E78.9 Hypertension, essential I10 Tobacco abuse Z72.0
[2023-07-13 08:45] VITALS: BP 124/62; PULSE 120; O2SAT 85
[2023-07-13 08:58] VITALS: PULSE 107; O2SAT 96
== END 2023-07-13 10:44 | disposition home or self-care (01) ==
PROVIDERS: PCP Internal Medicine; Visit Provider Internal Medicine
DX: J43.1 Panlobular emphysema (principal); E78.9 Disorder of lipoprotein metabolism, unspecified; I10 Essential (primary) hypertension; Z72.0 Tobacco use
CPT/HCPCS: 99214

== ENCOUNTER 2023-10-27 08:26 | Outpatient (AMB) | payer MEDICARE, SELFPAY ==
--- NOTE | 2023-10-27 08:32 | A.OFFPC_ITS ---
Intake Visit Reasons: 6m F/u Allergies No Known Allergies Allergy (Verified 10/27/23 08:33) Medication List - Last Reconciled 10/27/23 by Martell Mackenzie MD albuterol sulfate 90 mcg/actuation (ProAir HFA) 1 inh inhalation QID PRN 30 days cholecalciferol (vitamin D3) 25 mcg PO DAILY 90 days ipratropium-albuterol 0.5 mg-3 mg(2.5 mg base)/3 mL 3 mL inhalation Q6-8H PRN 30 days losartan-hydrochlorothiazide 100-25 mg 1 tab PO DAILY lovastatin 20 mg PO DAILY 90 days Tobacco use date assessed: 10/27/23 Fall risk assessment: No Falls in past year Last assessed Fall Risk: 10/27/23 Dental Screening Dental Screen Date: 10/27/23 Did you have a dental visit in the last 12 months?: Yes Did you have a dental problem in the last 6 months where you did not have access to dental care?: No Was dental information given to patient?: Patient has dentist HPI 6m F/u HPI Details Patient is 68-year-old female this is a tele medicine video follow-up Patient continued to smoke half a pack per day Once again advised patient to stop She does have COPD, and use nebulizer treatment when needed and albuterol as a rescue inhaler Blood pressure is stable, and is running in 130s systolic at home She is taking losartan hydrochlorothiazide 100-25 And lovastatin 20 for lipid control Continue vitamin-D supplement Patient has chronic hyponatremia as well She is due for labs, patient notified to do it fasting last set of lab was in April Reviewed again Patient has follow-up appointment in January and then in April for physical exam [facility] Medical History Lipid disorder Hypertension, essential Tobacco abuse Surgical History History of femoral hernia repair (10/07/22) History of vaginal hysterectomy Family History Father Lung cancer Smoker Mother Breast cancer Dementia Brother Myocardial infarction Brother No problems noted. Sister No problems noted. Sister No problems noted. Sister No problems noted. Son No problems noted. Social History Household Members: Family Housing: Apartment Do you presently have visiting nurse or other home services: No Alcohol intake: current Alcohol intake frequency: holidays/special occasions only Alcohol type: beer and hard liquor Patient Tobacco Use Status: Current everyday Tobacco user Tobacco use type: Cigarette Cigarettes Per Day: 4 e-Cigarette/Vaping Use: Never Used service: No Current occupational status: employed Cognitive needs: No Hearing needs: No Vision needs: No Questionnaire Thrive Questionnaire Date Thrive assessed: 04/12/23 AUDIT C Alcohol Use Questionnaire (AUDIT-C) 1. How often do you have a drink containing alcohol?: 2-3 times a week 2. How many drinks containing alcohol do you have on a typical day when you are drinking?: 1 or 2 3. How often do you have six or more drinks on one occasion?: Never Total Score: 3 Score Reviewed/Action Taken: Yes KATHERIN-7 AMB Questionnaire KATHERIN-7 Date KATHERIN - 7 assessed: 04/12/23 Source: Developed by Drs. Gilbert Nino, Ramona Tan, Betito Lopez and colleagues, with an educational ken from [employer]. Review of Systems Const Denies chills and Denies fever(s) ENT Denies epistaxis and Denies nasal discharge Card Denies chest pain Resp Denies chest congestion, Denies cough and Denies hemoptysis GI Denies diarrhea and Denies nausea Skin/Breast Denies rash Neuro Reports no additional complaints Psych Reports no additional complaints Endo Reports no additional complaints Physical exam (Primary Care) Tobacco/Smoking Status: Tobacco use Status Tobacco use date assessed 10/27/23 10/27/23 08:33 Patient Tobacco Use Status Current everyday Tobacco 10/27/23 08:33 Tobacco use type Cigarette 10/27/23 08:33 e-Cigarette/Vaping Use Never Used 10/27/23 08:33 Thrive Assessment: Date of Thrive Assessment Date Thrive assessed 04/12/23 10/27/23 08:33 Telehealth Telehealth Location of provider rendering services: practice address Location of patient: address on file Patient Identification confirmed using: Name, : Yes Telehealth method: video Patient verbally consented to treatment: Yes Patient verbally consented to billing insurance company: Yes Patient informed of any privacy concerns related to visit: Yes Assessment and Plan Assessment & Plan (1) Hypertension, essential: Code(s): I10 - Essential (primary) hypertension (2) Lipid disorder: Code(s): E78.9 - Disorder of lipoprotein metabolism, unspecified (3) COPD (chronic obstructive pulmonary disease): Code(s): J44.9 - Chronic obstructive pulmonary disease, unspecified Qualifiers: COPD type: emphysema Emphysema type: panlobular Qualified Code(s): J43.1 - Panlobular emphysema (4) Tobacco abuse: Code(s): Z72.0 - Tobacco use Plan Patient is 68-year-old female this is a tele medicine video follow-up Patient continued to smoke half a pack per day Once again advised patient to stop She does have COPD, and use nebulizer treatment when needed and albuterol as a rescue inhaler Blood pressure is stable, and is running in 130s systolic at home She is taking losartan hydrochlorothiazide 100-25 And lovastatin 20 for lipid control Continue vitamin-D supplement Patient has chronic hyponatremia as well She is due for labs, patient notified to do it fasting last set of lab was in April Reviewed again Patient has follow-up appointment in January and then in April for physical exam Orders: Orders Comprehensive [place]. Panel Fast Today E78.9 - Disorder of lipoprotein metabolism, unspecified, I10 - Essential (primary) hypertension, J44.9 - Chronic obstructive pulmonary disease, unspecified, Z72.0 - Tobacco use Lipid Panel Today E78.9 - Disorder of lipoprotein metabolism, unspecified, I10 - Essential (primary) hypertension, J44.9 - Chronic obstructive pulmonary disease, unspecified, Z72.0 - Tobacco use Complete Blood Count Auto Diff Today E78.9 - Disorder of lipoprotein metabolism, unspecified, I10 - Essential (primary) hypertension, J44.9 - Chronic obstructive pulmonary disease, unspecified, Z72.0 - Tobacco use Medications: Refilled losartan-hydrochlorothiazide 100-25 mg 1 tab PO DAILY 90 tabs 0RF lovastatin 20 mg PO DAILY 90 tabs 0RF 90 days cholecalciferol (vitamin D3) 25 mcg PO DAILY 90 caps 0RF 90 days albuterol sulfate 90 mcg/actuation (ProAir HFA) 1 inh inhalation QID PRN 18 grams 0RF shortness of breath or wheezing 30 days ipratropium-albuterol 0.5 mg-3 mg(2.5 mg base)/3 mL 3 mL inhalation Q6-8H PRN 90 mL 0RF wheezing 30 days Coding Level of Care Code Tele Est Pt Level 4 (50086) Diagnoses Hypertension, essential I10 Lipid disorder E78.9 Panlobular emphysema J43.1 COPD type: emphysema Emphysema type: panlobular Tobacco abuse Z72.0 Time Spent (min) 30 Comment 5 pre visit, 15 with patient, 5 charting, 5 coordination of care
== END 2023-10-27 12:28 | disposition home or self-care (01) ==
LOC: HO.HMGC 08:26
PROVIDERS: PCP Internal Medicine; Visit Provider Internal Medicine
DX: I10 Essential (primary) hypertension (principal); E78.9 Disorder of lipoprotein metabolism, unspecified; J43.1 Panlobular emphysema; Z72.0 Tobacco use
CPT/HCPCS: 99214

== ENCOUNTER 2024-04-18 10:24 | Outpatient (AMB) | payer MEDICARE, SELFPAY ==
[2024-04-18 10:36] VITALS: BP 142/80; PULSE 97; O2SAT 97; BMI 24.5
--- NOTE | 2024-04-18 10:36 | MHC.PC.OV ---
Vital Signs 04/18/24 10:36 Height 5 ft 3 in Weight 138 lb 6 oz BMI 24.5 BP 142/80 H Blood Pressure Location Rt brachial Position Sitting Pulse 97 Pulse Source Pulse Oximeter Pulse Oximetry (%) 97 Oxygen Delivery Method Room Air Intake Visit Reasons: PE Allergies No Known Allergies Allergy (Verified 04/18/24 10:38) Medication List - Last Reconciled 04/18/24 by Martell Mackenzie MD albuterol sulfate 90 mcg/actuation (ProAir HFA) 1 inh inhalation QID PRN 30 days cholecalciferol (vitamin D3) 25 mcg PO DAILY 90 days ipratropium-albuterol 0.5 mg-3 mg(2.5 mg base)/3 mL 3 mL inhalation Q6-8H PRN 30 days losartan-hydrochlorothiazide 100-25 mg 1 tab PO DAILY lovastatin 20 mg PO DAILY 90 days Tobacco use date assessed: 04/18/24 Fall risk assessment: No Falls in past year Last assessed Fall Risk: 04/18/24 Dental Screening Dental Screen Date: 04/18/24 Did you have a dental visit in the last 12 months?: No Did you have a dental problem in the last 6 months where you did not have access to dental care?: No Was dental information given to patient?: Patient has dentist HPI PE HPI Details Patient is a 68-year-old female Continued to smoke, patient says that she would like to go on Chantix she has quit once on it I have sent a script, patient was recommended to continue medication at least for three-month if she does succeed She is due for mammogram order placed She has not called Dr. Fleming office for colonoscopy, referral was placed last year Patient says that she will call as soon as possible She has a history of hysterectomy secondary to uterine prolapse and is no longer seeing OBGYN Lab is due order placed to be done fasting Follow-up 4 months Patient failed tandem walk today And continued to declined breast exam Blood pressure is elevated, I have encouraged patient to start monitoring her blood pressure at home and bring a log next time. FORMERLY [facility], [facility] Medical History Lipid disorder Hypertension, essential Tobacco abuse Surgical History History of femoral hernia repair (10/07/22) History of vaginal hysterectomy Family History Father Lung cancer Smoker Mother Breast cancer Dementia Brother Myocardial infarction Brother No problems noted. Sister No problems noted. Sister No problems noted. Sister No problems noted. Son No problems noted. Social History Household Members: Family Housing: Apartment Do you presently have visiting nurse or other home services: No Alcohol intake: current Alcohol intake frequency: holidays/special occasions only Alcohol type: beer and hard liquor Patient Tobacco Use Status: Current everyday Tobacco user Tobacco use type: Cigarette Cigarettes Per Day: 4 e-Cigarette/Vaping Use: Never Used service: No Current occupational status: employed Cognitive needs: No Hearing needs: No Vision needs: No Questionnaire PHQ-9 Over the last 2 weeks, how often have you been bothered by any of the following problems? 1. Little interest or pleasure in doing things: not at all 2. Feeling down, depressed, or hopeless: not at all 3. Trouble falling or staying asleep, or sleeping too much: not at all 4. Feeling tired or having little energy: not at all 5. Poor appetite or overeating: not at all 6. Feeling bad about yourself - or that you are a failure or have let yourself or your family down: not at all 7. Trouble concentrating on things, such as reading the newspaper or watching television: not at all 8. Moving or speaking so slowly that other people could have noticed. Or the opposite - being so fidgety or restless that you have been moving around a lot more than usual: not at all 9. Thoughts that you would be better off or of hurting yourself in some way: not at all Total score: 0 Depression Screening Interpretation: Negative Depression Screening Done: Yes 85381 - PHQ-9 Billing: Yes Source: Developed by Drs. Gilbert Nino, Ramona Tan, Betito Lopez and colleagues, with an educational ken from [employer]. Thrive Questionnaire Date Thrive assessed: 04/18/24 I am a: Patient What is your living situation today?: I have a steady place to live Within the past 12 months, did the food you bought not last and you didn't have the money to get more?: Never true Within the past 12 months, did you worry whether your food would run out before you got money to buy more?: Never true Do you have trouble paying for medicines?: No Do you have trouble getting transportation to medical appointments?: No Do you have trouble paying your heating and electricity bill?: No Do you have trouble taking care of your child, family member or friend?: No Do you have trouble with day-to-day activities such as bathing, preparing meals, shopping, managing finances, etc.?: No Are you currently unemployed and looking for a job?: No Are you interested in more education?: No Please select the resources that you would like help with: None Currently or been in a relationship where the following occur: No concerns reported THRIVE Score: 0 AUDIT C Alcohol Use Questionnaire (AUDIT-C) 1. How often do you have a drink containing alcohol?: 2-3 times a week 2. How many drinks containing alcohol do you have on a typical day when you are drinking?: 1 or 2 3. How often do you have six or more drinks on one occasion?: Never Total Score: 3 Score Reviewed/Action Taken: Yes KATHERIN-7 AMB Questionnaire KATHERIN-7 Date KATHERIN - 7 assessed: 04/18/24 Feeling nervous, anxious, or on edge: 0 = Not at all Not being able to stop or control worryin = Not at all Worrying too much about different things: 0 = Not at all Trouble relaxin = Not at all Being so restless that it is hard to sit still: 0 = Not at all Becoming easily annoyed or irritable: 0 = Not at all Feeling afraid as if something awful might happen: 0 = Not at all Total KATHERIN-7 score (0-4 normal; 5-9 mild; 10-14 moderate; 15-21 severe): 0 Source: Developed by Drs. Gilbert Nino, Ramona Tan, Betito Lopez and colleagues, with an educational ken from [employer]. KATHERIN-7 Assessment Billing KATHERIN-7 Assessment Tool: KATHERIN-7 Assessment 58578 Review of Systems Const Denies chills, Denies fever(s) and Denies headache(s) Eyes Denies blurry vision ENT Denies headache(s), Denies nasal discharge, Denies nasal obstruction, Denies odynophagia and Denies sinus pain Card Denies chest pain at rest and Denies chest pain with activity Resp Denies hemoptysis GI Denies diarrhea, Denies odynophagia, Denies vomiting and Denies hematemesis Reports as per HPI Musc Denies abnormal gait Skin/Breast Reports as per HPI Neuro Denies Neuro-related abnormal movements, Denies Abnormal speech present, Denies abnormal gait, Denies headache(s) and Denies Sensory deficit (Neuro) Psych Denies mood swings and Denies paranoia Endo Reports as per HPI Yovany/Lymph Reports as per HPI Aller/Immun Reports as per HPI Physical exam (Primary Care) Vital Signs: Last Vital Signs Pulse 97 04/18/24 10:36 BP 142/80 H 04/18/24 10:36 Pulse Ox 97 04/18/24 10:36 Oxygen Delivery Method Room Air 04/18/24 10:36 BMI result Body Mass Index 24.5 Tobacco/Smoking Status: Tobacco use Status Tobacco use date assessed 04/18/24 04/18/24 10:39 Patient Tobacco Use Status Current everyday Tobacco 04/18/24 10:39 Tobacco use type Cigarette 04/18/24 10:39 e-Cigarette/Vaping Use Never Used 04/18/24 10:39 PHQ-9: PHQ-9 Score PHQ-9: Total score 0 04/18/24 10:55 Depression Screening Interpretation: Negative Thrive Assessment: Date of Thrive Assessment Date Thrive assessed 04/18/24 04/18/24 10:39 Currently or been in a relationship where the following occur: No concerns reported Const General: cooperative, comfortable and no acute distress Orientation/consciousness: patient oriented x3 HENMT Head: Yes normocephalic and Yes atraumatic Eyes General: appearance normal, both eyes and all related structures Pupils: Equal, round and reactive pupils present EOM: EOMs intact bilaterally Neck Neck: Yes supple and No lymphadenopathy Thyroid: Thyroid normal Lymphatic: no lymphadenopathy noted Resp Effort & Inspection: normal respiratory effort and able to speak in complete sentences Auscultation: clear to auscultation bilaterally Cardio Heart sounds: S1 normal heart sound present and S2 normal heart sound present GI Palpation (GI): Soft to palpation and nontender Auscultation: normal bowel sounds General: Yes no CVA tenderness Back/Spine/Pelvis Back: no CVA tenderness Skin General skin exam: elasticity normal and turgor normal Neuro General: patient oriented x3 and gait normal Cranial nerves: Yes Equal, round and reactive pupils present Speech: No Abnormal speech present Sensory Exam: No Sensory deficit (Neuro) Coordination: Romberg test negative Extrem General: Yes normal exam except as noted and No edema Assessment and Plan Assessment & Plan (1) Encounter for general adult medical examination with abnormal findings: Code(s): Z00.01 - Encounter for general adult medical examination with abnormal findings (2) Tobacco abuse: Code(s): Z72.0 - Tobacco use (3) Hypertension, essential: Code(s): I10 - Essential (primary) hypertension (4) Lipid disorder: Code(s): E78.9 - Disorder of lipoprotein metabolism, unspecified (5) COPD (chronic obstructive pulmonary disease): Code(s): J44.9 - Chronic obstructive pulmonary disease, unspecified Qualifiers: COPD type: emphysema Emphysema type: panlobular Qualified Code(s): J43.1 - Panlobular emphysema (6) Abnormal tandem walk: Code(s): R26.9 - Unspecified abnormalities of gait and mobility Plan Patient is a 68-year-old female Continued to smoke, patient says that she would like to go on Chantix she has quit once on it I have sent a script, patient was recommended to continue medication at least for three-month if she does succeed She is due for mammogram order placed She has not called Dr. Fleming office for colonoscopy, referral was placed last year Patient says that she will call as soon as possible She has a history of hysterectomy secondary to uterine prolapse and is no longer seeing OBGYN Lab is due order placed to be done fasting Follow-up 4 months Patient failed tandem walk today And continued to declined breast exam Blood pressure is elevated, I have encouraged patient to start monitoring her blood pressure at home and bring a log next time. Orders: Orders Comprehensive [place]. Panel Fast Today E78.9 - Disorder of lipoprotein metabolism, unspecified, I10 - Essential (primary) hypertension, J43.1 - Panlobular emphysema, Z00.01 - Encounter for general adult medical examination with abnormal findings, Z72.0 - Tobacco use Lipid Panel Today E78.9 - Disorder of lipoprotein metabolism, unspecified, I10 - Essential (primary) hypertension, J43.1 - Panlobular emphysema, Z00.01 - Encounter for general adult medical examination with abnormal findings, Z72.0 - Tobacco use TSH reflex Free T4 Today E78.9 - Disorder of lipoprotein metabolism, unspecified, I10 - Essential (primary) hypertension, J43.1 - Panlobular emphysema, Z00.01 - Encounter for general adult medical examination with abnormal findings, Z72.0 - Tobacco use MM tomosynthesis screening BI Today Z12.31 - Encounter for screening mammogram for malignant neoplasm of breast Complete Blood Count Auto Diff Today E78.9 - Disorder of lipoprotein metabolism, unspecified, I10 - Essential (primary) hypertension, J43.1 - Panlobular emphysema, Z00.01 - Encounter for general adult medical examination with abnormal findings, Z72.0 - Tobacco use Medications: New varenicline (Chantix Starting Month Box) PO PER PKG DIR 53 ea 0RF Coding Level of Care Code Est Pt Level 3 (53671) Est Pt Prev Care >65y(83274) Diagnoses Encounter for general adult medical examination with abnormal findings Z00.01 Tobacco abuse Z72.0 Hypertension, essential I10 Lipid disorder E78.9 Panlobular emphysema J43.1 COPD type: emphysema Emphysema type: panlobular Abnormal tandem walk R26.9 Additional Codes KATHERIN-7 Assessment Billing - KATHERIN-7 Assessment Tool: KATHERIN-7 Assessment 31504 ([id number])
== END 2024-04-18 11:51 | disposition home or self-care (01) ==
PROVIDERS: PCP Internal Medicine; Visit Provider Internal Medicine
DX: Z00.00 Encounter for general adult medical examination without abnormal findings (principal); J43.1 Panlobular emphysema; Z72.0 Tobacco use; I10 Essential (primary) hypertension; E78.9 Disorder of lipoprotein metabolism, unspecified; R26.9 Unspecified abnormalities of gait and mobility
CPT/HCPCS: 99213; 99397

== ENCOUNTER 2024-05-14 13:14 | Outpatient (REF) | payer MEDICARE, SELFPAY ==
--- NOTE | ~2024-05-14 | MM_ITS ---
EXAMINATION: MM SCREENING DIGITAL BREAST TOMOSYNTHESIS, BILATERAL CLINICAL INFORMATION: Screening. Asymptomatic. COMPARISON: Mammography: Comparison is made with available priors TECHNIQUE: Digital breast mammography with tomosynthesis is performed in both the craniocaudal and mediolateral oblique views along with computer-aided detection (CAD). FINDINGS: The breasts are heterogeneously dense, which may obscure small masses (ACR BI-RADS breast composition Category c). There are no significant masses, abnormal calcifications, or other abnormalities. MM/MM tomosynthesis screening BI IMPRESSION: No mammographic evidence of malignancy. ASSESSMENT: BI-RADS BI-RADS 1 - Negative RECOMMENDATION: Routine annual mammography screening. 1 year F/U This examination should not preclude the clinical evaluation of a suspicious palpable abnormality. This patient's information was entered into a reminder system with a target due date for their next mammogram. Electronically signed by: Divya Sabillon DO 05/28/2024 05:53 PM EDT
== END 2024-05-14 13:15 | disposition home or self-care (01) ==
LOC: HO.MAMMO 13:14
PROVIDERS: PCP Internal Medicine; Visit Provider Internal Medicine
DX: Z12.31 Encounter for screening mammogram for malignant neoplasm of breast (principal)
CPT/HCPCS: 77063; 77067

== ENCOUNTER → 2024-05-14 13:30 | Outpatient (BNV) | payer MEDICARE, SELFPAY | PROVIDERS: PCP Internal Medicine; Visit Provider Internal Medicine | DX: Z12.31 Encounter for screening mammogram for malignant neoplasm of breast (principal) | CPT/HCPCS: 77063; 77067 ==

== ENCOUNTER 2024-05-31 06:01 | Outpatient (REF) | payer MEDICARE, SELFPAY ==
[2024-05-31 10:05] LABS: MANUAL DIFF FLAG NO
[2024-05-31 10:10] LABS: Basophils Absolute Auto 0.1 X10*3/uL (0.0-0.2); Basophils Percent Auto 0.6 % (0-2); Eosinophils Absolute Auto 0.1 X10*3/uL (0.0-0.4); Eosinophils Percent Auto 0.9 % (0-4); Hematocrit 42.4 % (37.0-47.0); Hemoglobin 14.5 g/dl (12.0-16.0); Imm Gran Abs Auto 0.04 X10*3/uL (0.00-0.03); Imm Gran Pct Auto 0.4 % (0.0-0.4); Lymphocytes Absolute Auto 2.2 X10*3/uL (1.2-4.9); Lymphocytes Percent Auto 21.6 % (20-40); Mean Corpuscular HGB Conc 34.2 g/dl (31.0-35.0); Mean Corpuscular Volume 99.3 fL (80.0-98.0); Mean Platelet Volume 8.9 fL (9.4-12.3); Monocytes Absolute Auto 0.8 X10*3/uL (0.1-1.2); Neutrophils Absolute Auto 6.9 x10*3/uL (2.0-8.3); Neutrophils Percent Auto 68.5 % (45-73); Platelet Count 350 X10*3/uL (160-400); Red Blood Count 4.27 X10*6/uL (4.20-5.50); Red Cell Distribution Width 12.8 % (11.0-16.0); White Blood Count 10.1 X10*3/uL (4.8-10.8)
[2024-05-31 10:42] LABS: Alanine Aminotransferase 17 U/L (0-31); Albumin Level 4.5 g/dL (3.5-5.0); Alkaline Phosphatase 75 U/L (39-117); Anion Gap 13 (12-20); Aspartate Amino Transferase 23 U/L (5-31); Bilirubin Total 0.9 mg/dL (0.0-1.0); Blood Urea Nitrogen 14 mg/dL (9-16); Calcium 10.3 mg/dL (8.4-10.2); Carbon Dioxide 27 mmol/L (22-29); Chloride 100 mmol/L (96-108); Cholesterol 196 mg/dL (<200); Estimated Glomerular Filt Rate > 60; Glucose Fasting 93 mg/dL (60-99); HDL Cholesterol 72 mg/dL (>40); LDL Cholesterol Calculated 109 mg/dL (<100); Potassium 4.6 mmol/L (3.3-5.1); Sodium 135 mmol/L (135-145); TSH reflex Free T4 1.84 uIU/mL (0.32-4.0); Total Protein 7.5 g/dL (6.5-8.0); Triglycerides 76 mg/dL (<150)
== END 2024-05-31 06:02 | disposition home or self-care (01) ==
LOC: HO.HMGCLDS 06:01
PROVIDERS: PCP Internal Medicine; Visit Provider Internal Medicine
DX: Z00.01 Encounter for general adult medical examination with abnormal findings (principal); I10 Essential (primary) hypertension; E78.9 Disorder of lipoprotein metabolism, unspecified; J44.9 Chronic obstructive pulmonary disease, unspecified; Z72.0 Tobacco use; J43.1 Panlobular emphysema
CPT/HCPCS: 36415; 80053; 80061; 84443; 85025

== ENCOUNTER 2024-07-25 13:34 | Outpatient (AMB) | payer MEDICARE, SELFPAY ==
[2024-07-25 13:40] VITALS: BP 142/84; PULSE 105; O2SAT 94; BMI 24.3
--- NOTE | 2024-07-25 13:40 | MHC.PC.OV ---
Vital Signs 07/25/24 13:40 Height 5 ft 3 in Weight 137 lb 6 oz BMI 24.3 BP 142/84 H Blood Pressure Location Lt brachial Position Sitting Pulse 105 H Pulse Source Pulse Oximeter Pulse Oximetry (%) 94 Oxygen Delivery Method Room Air Intake Visit Reasons: follow-up Allergies No Known Allergies Allergy (Verified 07/25/24 13:43) Medication List - Last Reconciled 07/25/24 by Martell Mackenzie MD albuterol sulfate 90 mcg/actuation (ProAir HFA) 1 inh inhalation QID PRN 30 days cholecalciferol (vitamin D3) 25 mcg PO DAILY 90 days ipratropium-albuterol 0.5 mg-3 mg(2.5 mg base)/3 mL 3 mL inhalation Q6-8H PRN 30 days losartan-hydrochlorothiazide 100-25 mg 1 tab PO DAILY lovastatin 20 mg PO DAILY 90 days Tobacco use date assessed: 07/25/24 Fall risk assessment: No Falls in past year Last assessed Fall Risk: 07/25/24 Dental Screening Dental Screen Date: 07/25/24 Did you have a dental visit in the last 12 months?: Yes Did you have a dental problem in the last 6 months where you did not have access to dental care?: No Was dental information given to patient?: Patient has dentist HPI follow-up HPI Details The patient is a 69-year-old female presenting with essential hypertension and tobacco use disorder. At home, her blood pressure typically runs in the 130s mmHg. She attributes today's higher reading to recently getting off work where she was moving cases of beer, indicating physical activity. The patient is currently on antihypertensive medication with no side effects reported. The patient admits to smoking three-quarters of a pack of cigarettes per day, and sometimes half a pack. She has not utilized Chantix, a smoking cessation aid, which she was previously considered for due to past negative experience. She expressed interest in attempting smoking cessation using nicotine patches after discussing its potential benefits and mechanism with me. Additionally, the patient reports arthritis predominantly affecting small joints of her hands, leading to cramping and discomfort. Heart rate of 105 noticed, most likely secondary to emphysema Labs done recently reviewed with the patient and new set of lab order placed - The patient is employed and recently mentioned moving cases of beer as part of her work duties. - Tobacco use: Reports smoking approximately three-quarters of a pack to half a pack per day. - The patient attempts self-management of osteoarthritis symptoms through home remedies, such as using hot water to alleviate joint stiffness. Plan - Essential Hypertension: Continue current medication regimen. Blood pressure monitoring at home is advised, and the patient is encouraged to maintain regular follow-ups. - Tobacco Use Disorder: Initiate treatment with a 21 mg nicotine patch, with the potential to taper down to lower doses based on progress. Follow up in six months to assess progress. - Osteoarthritis: Managed symptomatically with non-pharmacological interventions such as heat application and joint mobility exercises. Patient is instructions - Continue current antihypertensive medication and monitor blood pressure at home. - Begin using the 21 mg nicotine patch for smoking cessation, avoid smoking while using the patch, and notify me upon readiness to taper dosage. - Apply heat and perform mobility exercises to alleviate arthritis symptoms. - Follow up in six months for assessment of smoking cessation progress and blood pressure review. - Schedule routine lab tests without fasting requirements. Discussion During our discussion, I reviewed the patient's current hypertensive status and reinforced the importance of adherence to antihypertensive medication. For tobacco use disorder, I explained the role and use of the nicotine patch, emphasizing its benefits for withdrawal management and habit cessation. We discussed starting with a 21 mg patch and tapering as the patient progresses. I conveyed the significant health risks associated with continued smoking and highlighted the benefits of cessation, particularly for respiratory health. For osteoarthritis, I recommended non-pharmacological measures to alleviate discomfort, emphasizing joint mobility. No additional labs required fasting; thus, routine labs were scheduled [facility] Medical History Lipid disorder Hypertension, essential Tobacco abuse Surgical History History of femoral hernia repair (10/07/22) History of vaginal hysterectomy Family History Father Lung cancer Smoker Mother Breast cancer Dementia Brother Myocardial infarction Brother No problems noted. Sister No problems noted. Sister No problems noted. Sister No problems noted. Son No problems noted. Social History Household Members: Family Housing: Apartment Do you presently have visiting nurse or other home services: No Alcohol intake: current Alcohol intake frequency: holidays/special occasions only Alcohol type: beer and hard liquor Patient Tobacco Use Status: Current everyday Tobacco user Tobacco use type: Cigarette Cigarettes Per Day: 4 e-Cigarette/Vaping Use: Never Used service: No Current occupational status: employed Cognitive needs: No Hearing needs: No Vision needs: No Questionnaire Thrive Questionnaire Date Thrive assessed: 07/25/24 I am a: Patient What is your living situation today?: I have a steady place to live Within the past 12 months, did the food you bought not last and you didn't have the money to get more?: Never true Within the past 12 months, did you worry whether your food would run out before you got money to buy more?: Never true Do you have trouble paying for medicines?: No Do you have trouble getting transportation to medical appointments?: No Do you have trouble paying your heating and electricity bill?: No Do you have trouble taking care of your child, family member or friend?: No Do you have trouble with day-to-day activities such as bathing, preparing meals, shopping, managing finances, etc.?: No Are you currently unemployed and looking for a job?: No Are you interested in more education?: No Please select the resources that you would like help with: None Currently or been in a relationship where the following occur: No concerns reported THRIVE Score: 0 AUDIT C Alcohol Use Questionnaire (AUDIT-C) 1. How often do you have a drink containing alcohol?: 2-3 times a week 2. How many drinks containing alcohol do you have on a typical day when you are drinking?: 1 or 2 3. How often do you have six or more drinks on one occasion?: Never Total Score: 3 Score Reviewed/Action Taken: Yes KATHERIN-7 AMB Questionnaire KATHERIN-7 Date KATHERIN - 7 assessed: 04/18/24 Source: Developed by Drs. Gilbert Nino, aRmona Tan, Betito Lopez and colleagues, with an educational ken from [employer]. Review of Systems Const Denies chills and Denies fever(s) ENT Denies epistaxis and Denies nasal discharge Card Denies chest pain Resp Denies chest congestion, Denies cough and Denies hemoptysis GI Denies diarrhea and Denies nausea Skin/Breast Denies rash Neuro Reports no additional complaints Psych Reports no additional complaints Endo Reports no additional complaints Physical exam (Primary Care) Vital Signs: Last Vital Signs Pulse 105 H 07/25/24 13:40 BP 142/84 H 07/25/24 13:40 Pulse Ox 94 07/25/24 13:40 Oxygen Delivery Method Room Air 07/25/24 13:40 BMI result Body Mass Index 24.3 Tobacco/Smoking Status: Tobacco use Status Tobacco use date assessed 07/25/24 07/25/24 13:43 Patient Tobacco Use Status Current everyday Tobacco 07/25/24 13:43 Tobacco use type Cigarette 07/25/24 13:43 e-Cigarette/Vaping Use Never Used 07/25/24 13:43 Are you ready to quit: Yes Tobacco cessation counseling provided: Yes Relapse Prevention: discussed the importance of a supportive environment Thrive Assessment: Date of Thrive Assessment Date Thrive assessed 07/25/24 07/25/24 13:43 Currently or been in a relationship where the following occur: No concerns reported Const General: cooperative, comfortable and no acute distress Orientation/consciousness: patient oriented x3 HENMT Head: Yes normocephalic Eyes General: appearance normal, both eyes and all related structures Neck Neck: Yes supple Resp Effort & Inspection: normal respiratory effort, no cough and no stridor Cardio Rhythm: regular rhythm Heart sounds: S1 normal heart sound present and S2 normal heart sound present Skin General skin exam: turgor normal Neuro General: patient oriented x3, tone normal and moves all extremities Extrem Right lower extremity: no edema Left lower extremity: no edema Coding Level of Care Code Est Pt Level 4 (49755) Complex EM visit Add On G2211 Diagnoses Hypertension, essential I10 Lipid disorder E78.9 Tobacco abuse Z72.0 Panlobular emphysema J43.1 COPD type: emphysema Emphysema type: panlobular Primary osteoarthritis involving multiple joints M15.0 Osteoarthritis type: primary Tachycardia R00.0 Assessment & Plan Assessment & Plan (1) Hypertension, essential: Code(s): I10 - Essential (primary) hypertension Category: Medical (2) Lipid disorder: Code(s): E78.9 - Disorder of lipoprotein metabolism, unspecified Category: Medical (3) Tobacco abuse: Code(s): Z72.0 - Tobacco use Category: Medical (4) COPD (chronic obstructive pulmonary disease): Code(s): J44.9 - Chronic obstructive pulmonary disease, unspecified Category: Medical Qualifiers: COPD type: emphysema Emphysema type: panlobular Qualified Code(s): J43.1 - Panlobular emphysema (5) Osteoarthritis of multiple joints: Code(s): M15.9 - Polyosteoarthritis, unspecified Category: Medical Qualifiers: Osteoarthritis type: primary Qualified Code(s): M15.0 - Primary generalized (osteo)arthritis (6) Tachycardia: Code(s): R00.0 - Tachycardia, unspecified Category: Medical Plan The patient is a 69-year-old female presenting with essential hypertension and tobacco use disorder. At home, her blood pressure typically runs in the 130s mmHg. She attributes today's higher reading to recently getting off work where she was moving cases of beer, indicating physical activity. The patient is currently on antihypertensive medication with no side effects reported. The patient admits to smoking three-quarters of a pack of cigarettes per day, and sometimes half a pack. She has not utilized Chantix, a smoking cessation aid, which she was previously considered for due to past negative experience. She expressed interest in attempting smoking cessation using nicotine patches after discussing its potential benefits and mechanism with me. Additionally, the patient reports arthritis predominantly affecting small joints of her hands, leading to cramping and discomfort. Heart rate of 105 noticed, most likely secondary to emphysema Labs done recently reviewed with the patient and new set of lab order placed - The patient is employed and recently mentioned moving cases of beer as part of her work duties. - Tobacco use: Reports smoking approximately three-quarters of a pack to half a pack per day. - The patient attempts self-management of osteoarthritis symptoms through home remedies, such as using hot water to alleviate joint stiffness. Plan - Essential Hypertension: Continue current medication regimen. Blood pressure monitoring at home is advised, and the patient is encouraged to maintain regular follow-ups. - Tobacco Use Disorder: Initiate treatment with a 21 mg nicotine patch, with the potential to taper down to lower doses based on progress. Follow up in six months to assess progress. - Osteoarthritis: Managed symptomatically with non-pharmacological interventions such as heat application and joint mobility exercises. Patient is instructions - Continue current antihypertensive medication and monitor blood pressure at home. - Begin using the 21 mg nicotine patch for smoking cessation, avoid smoking while using the patch, and notify me upon readiness to taper dosage. - Apply heat and perform mobility exercises to alleviate arthritis symptoms. - Follow up in six months for assessment of smoking cessation progress and blood pressure review. - Schedule routine lab tests without fasting requirements. Discussion During our discussion, I reviewed the patient's current hypertensive status and reinforced the importance of adherence to antihypertensive medication. For tobacco use disorder, I explained the role and use of the nicotine patch, emphasizing its benefits for withdrawal management and habit cessation. We discussed starting with a 21 mg patch and tapering as the patient progresses. I conveyed the significant health risks associated with continued smoking and highlighted the benefits of cessation, particularly for respiratory health. For osteoarthritis, I recommended non-pharmacological measures to alleviate discomfort, emphasizing joint mobility. No additional labs required fasting; thus, routine labs were scheduled Orders: Orders Comprehensive Met. Panel Today E78.9 - Disorder of lipoprotein metabolism, unspecified, I10 - Essential (primary) hypertension, J43.1 - Panlobular emphysema, M15.9 - Polyosteoarthritis, unspecified, R00.0 - Tachycardia, unspecified, Z72.0 - Tobacco use LDL Cholesterol Direct Today E78.9 - Disorder of lipoprotein metabolism, unspecified, I10 - Essential (primary) hypertension, J43.1 - Panlobular emphysema, M15.9 - Polyosteoarthritis, unspecified, R00.0 - Tachycardia, unspecified, Z72.0 - Tobacco use TSH reflex Free T4 Today E78.9 - Disorder of lipoprotein metabolism, unspecified, I10 - Essential (primary) hypertension, J43.1 - Panlobular emphysema, M15.9 - Polyosteoarthritis, unspecified, R00.0 - Tachycardia, unspecified, Z72.0 - Tobacco use Complete Blood Count Auto Diff Today E78.9 - Disorder of lipoprotein metabolism, unspecified, I10 - Essential (primary) hypertension, J43.1 - Panlobular emphysema, M15.9 - Polyosteoarthritis, unspecified, R00.0 - Tachycardia, unspecified, Z72.0 - Tobacco use Vitamin D 25-OH (D2 and D3) Today E78.9 - Disorder of lipoprotein metabolism, unspecified, I10 - Essential (primary) hypertension, J43.1 - Panlobular emphysema, M15.9 - Polyosteoarthritis, unspecified, R00.0 - Tachycardia, unspecified, Z72.0 - Tobacco use Medications: New nicotine (Nicoderm CQ) 1 patch transdermal DAILY 28 ea 2RF
== END 2024-07-25 15:44 | disposition home or self-care (01) ==
PROVIDERS: PCP Internal Medicine; Visit Provider Internal Medicine
DX: I10 Essential (primary) hypertension (principal); E78.9 Disorder of lipoprotein metabolism, unspecified; Z72.0 Tobacco use; J43.1 Panlobular emphysema; M15.0 Primary generalized (osteo)arthritis; R00.0 Tachycardia, unspecified

== ENCOUNTER → 2024-07-25 13:34 | Outpatient (BNVA) | payer MEDICARE, SELFPAY | PROVIDERS: PCP Internal Medicine; Visit Provider Internal Medicine | DX: I10 Essential (primary) hypertension (principal); E78.9 Disorder of lipoprotein metabolism, unspecified; J43.1 Panlobular emphysema; M15.0 Primary generalized (osteo)arthritis; R00.0 Tachycardia, unspecified; Z72.0 Tobacco use | CPT/HCPCS: 99212 ==

== ENCOUNTER 2025-02-13 08:53 | Outpatient (REF) | payer MEDICARE, SELFPAY ==
[2025-02-13 10:32] LABS: MANUAL DIFF FLAG NO
[2025-02-13 10:43] LABS: Basophils Absolute Auto 0.1 X10*3/uL (0.0-0.2); Basophils Percent Auto 0.6 % (0-2); Eosinophils Absolute Auto 0.1 X10*3/uL (0.0-0.4); Hematocrit 41.7 % (37.0-47.0); Hemoglobin 14.2 g/dl (12.0-16.0); Imm Gran Abs Auto 0.03 X10*3/uL (0.00-0.03); Imm Gran Pct Auto 0.4 % (0.0-0.4); Lymphocytes Absolute Auto 2.5 X10*3/uL (1.2-4.9); Lymphocytes Percent Auto 29.3 % (20-40); Mean Corpuscular HGB Conc 34.1 g/dl (31.0-35.0); Mean Corpuscular Hemoglobin 33.5 pg (27.0-33.0); Mean Corpuscular Volume 98.3 fL (80.0-98.0); Mean Platelet Volume 8.9 fL (9.4-12.3); Monocytes Absolute Auto 0.6 X10*3/uL (0.1-1.2); Monocytes Percent Auto 6.9 % (2-11); Neutrophils Absolute Auto 5.2 x10*3/uL (2.0-8.3); Neutrophils Percent Auto 61.8 % (45-73); Platelet Count 326 X10*3/uL (160-400); Red Blood Count 4.24 X10*6/uL (4.20-5.50); Red Cell Distribution Width 12.7 % (11.0-16.0); White Blood Count 8.4 X10*3/uL (4.8-10.8)
[2025-02-13 11:14] LABS: Alanine Aminotransferase 18 U/L (0-31); Albumin Level 4.6 g/dL (3.5-5.0); Alkaline Phosphatase 74 U/L (39-117); Anion Gap 11 (12-20); Aspartate Amino Transferase 27 U/L (5-31); Bilirubin Total 1.1 mg/dL (0.0-1.0); Blood Urea Nitrogen 21 mg/dL (9-16); Calcium 9.7 mg/dL (8.4-10.2); Carbon Dioxide 29 mmol/L (22-29); Chloride 98 mmol/L (96-108); Cholesterol 188 mg/dL (<200); Estimated Glomerular Filt Rate > 60; Glucose Fasting 100 mg/dL (60-99); HDL Cholesterol 63 mg/dL (>40); LDL Cholesterol Calculated 104 mg/dL (<100); Potassium 3.8 mmol/L (3.3-5.1); Sodium 134 mmol/L (135-145); Total Protein 7.3 g/dL (6.5-8.0); Triglycerides 106 mg/dL (<150)
[2025-02-13 11:30] LABS: TSH reflex Free T4 0.87 uIU/mL (0.32-4.0)
[2025-02-19 05:39] LABS: Vitamin D 25-OH, D2 <4 ng/mL; Vitamin D 25-OH, D3 18 ng/mL; Vitamin D 25-OH, Total 18 ng/mL (30-100)
== END 2025-02-13 08:54 | disposition home or self-care (01) ==
LOC: HO.HMGCLDS 08:53
PROVIDERS: PCP Internal Medicine; Visit Provider Internal Medicine
DX: I10 Essential (primary) hypertension (principal); L30.9 Dermatitis, unspecified; E78.9 Disorder of lipoprotein metabolism, unspecified; M15.0 Primary generalized (osteo)arthritis; J43.1 Panlobular emphysema
CPT/HCPCS: 36415; 80053; 80061; 82306; 84443; 85025; 96127; 99212

== ENCOUNTER 2025-02-13 08:53 | Outpatient (AMB) | payer MEDICARE, SELFPAY ==
[2025-02-13 08:55] VITALS: BP 146/86; PULSE 64; RESP 16; TEMP 36.5; O2SAT 100; BMI 24.3
--- NOTE | 2025-02-13 08:55 | A.OFFPC_ITS ---
Vital Signs 02/13/25 08:55 Height 5 ft 3 in Weight 137 lb BMI 24.3 BP 146/86 H Blood Pressure Location Lt brachial Position Sitting Respiration 16 Pulse 64 Pulse Source Pulse Oximeter Temp 97.7 F Temp Source Oral Pulse Oximetry (%) 100 Oxygen Delivery Method Room Air Intake Visit Reasons: 6m follow up Allergies No Known Allergies Allergy (Verified 02/13/25 08:55) Medication List - Last Reconciled 02/13/25 by Martell Mackenzie MD albuterol sulfate 90 mcg/actuation (ProAir HFA) 1 inh inhalation QID PRN 30 days cholecalciferol (vitamin D3) 25 mcg PO DAILY 90 days ipratropium-albuterol 0.5 mg-3 mg(2.5 mg base)/3 mL 3 mL inhalation Q6-8H PRN 30 days losartan-hydrochlorothiazide 100-25 mg 1 tab PO DAILY lovastatin 20 mg PO DAILY 90 days Tobacco use date assessed: 02/13/25 Fall risk assessment: No Falls in past year Last assessed Fall Risk: 02/13/25 Dental Screening Dental Screen Date: 02/13/25 Did you have a dental visit in the last 12 months?: Yes Did you have a dental problem in the last 6 months where you did not have access to dental care?: No Was dental information given to patient?: Patient has dentist HPI 6m follow up HPI Details History - The patient is a 69-year-old female pr esenting with a new skin rash. - The rash began approximately two weeks ago. - Initially appeared on the right lower leg and was extremely pruritic. - The rash has since spread to the left arm, right arm, and the other leg. - Patient reports itching, which seems t o intensify during the afternoon and while at work, but does not notice when working due to engagement in activities. - She associates the onset potentially w ith handling dirty, external cans in bags at her workplace. - The rash has formed lesions that upon intensive scratching begin to weep; healing is observed on some lesions. - No prior medical treatment for this co ndition until today's visit was noted. - Initially used apple cider vinegar bas ed on information sourced online. 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 - Keep affected skin areas clean and uche id scratching to prevent further skin breakdown. - Avoid using zruk-eul-wejrdeh ointments unless directed. - Schedule follow-up in one week to reas sess rash improvement - continue other medications Review of Systems - General: No fever no chills - Neurological: No headaches no dizziness - Ear nose throat: No sore throat no hearing difficulty no ear pain - Cardiovascular: No syncope, no chest pain, no palpitations - Gastrointestinal: No nausea vomiting or diarrhea - Endocrine: No polyuria polydipsia no heat intolerance - Genitourinary: No dysuria , no blood in urine Physical Exam General: No acute distress HEENT: No acute findings Neck: Supple Respiratory system: Able to talk in full sentences, no audible wheeze Cardiovascular: S1-S2 regular in rate and rhythm Gastrointestinal: No pain Extremities: No new findings 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 Skin is breaking due to scratching. Rash is inflamed weepy in patches specially right leg lower part anteromedial aspect with a large inflamed patch with broken skin [facility] Medical History Lipid disorder Hypertension, essential Tobacco abuse Surgical History History of femoral hernia repair (10/07/22) History of vaginal hysterectomy Family History Father Lung cancer Smoker Mother Breast cancer Dementia Brother Myocardial infarction Brother No problems noted. Sister No problems noted. Sister No problems noted. Sister No problems noted. Son No problems noted. Social History Household Members: Family Housing: Apartment Do you presently have visiting nurse or other home services: No Alcohol intake: current Alcohol intake frequency: holidays/special occasions only Alcohol type: beer and hard liquor Patient Tobacco Use Status: Current everyday Tobacco user Tobacco use type: Cigarette Cigarettes Per Day: 4 e-Cigarette/Vaping Use: Never Used service: No Current occupational status: employed Cognitive needs: No Hearing needs: No Vision needs: Yes Questionnaire PHQ-9 Over the last 2 weeks, how often have you been bothered by any of the following problems? 1. Little interest or pleasure in doing things: not at all 2. Feeling down, depressed, or hopeless: not at all 3. Trouble falling or staying asleep, or sleeping too much: not at all 4. Feeling tired or having little energy: not at all 5. Poor appetite or overeating: not at all 6. Feeling bad about yourself - or that you are a failure or have let yourself or your family down: not at all 7. Trouble concentrating on things, such as reading the newspaper or watching television: not at all 8. Moving or speaking so slowly that other people could have noticed. Or the opposite - being so fidgety or restless that you have been moving around a lot more than usual: not at all 9. Thoughts that you would be better off or of hurting yourself in some way: not at all Total score: 0 Depression Screening Interpretation: Negative Depression Screening Done: Yes 35633 - PHQ-9 Billing: Yes Source: Developed by Drs. Gilbert Nino, Ramona Tan, Betito Lopez and colleagues, with an educational ken from [employer] Thrive Questionnaire Date Thrive assessed: 07/25/24 I am a: Patient What is your living situation today?: I have a steady place to live Within the past 12 months, did the food you bought not last and you didn't have the money to get more?: Never true Within the past 12 months, did you worry whether your food would run out before you got money to buy more?: Never true Do you have trouble paying for medicines?: No Do you have trouble getting transportation to medical appointments?: No Do you have trouble paying your heating and electricity bill?: No Do you have trouble taking care of your child, family member or friend?: No Do you have trouble with day-to-day activities such as bathing, preparing meals, shopping, managing finances, etc.?: No Are you currently unemployed and looking for a job?: No Are you interested in more education?: No Please select the resources that you would like help with: None Currently or been in a relationship where the following occur: No concerns reported THRIVE Score: 0 AUDIT C Alcohol Use Questionnaire (AUDIT-C) 1. How often do you have a drink containing alcohol?: 2-3 times a week 2. How many drinks containing alcohol do you have on a typical day when you are drinking?: 1 or 2 3. How often do you have six or more drinks on one occasion?: Never Total Score: 3 KATHERIN-7 AMB Questionnaire KATHERIN-7 Date KATHERIN - 7 assessed: 04/18/24 Feeling nervous, anxious, or on edge: 0 = Not at all Not being able to stop or control worryin = Not at all Worrying too much about different things: 0 = Not at all Trouble relaxin = Not at all Being so restless that it is hard to sit still: 0 = Not at all Becoming easily annoyed or irritable: 0 = Not at all Feeling afraid as if something awful might happen: 0 = Not at all Total KATHERIN-7 score (0-4 normal; 5-9 mild; 10-14 moderate; 15-21 severe): 0 Source: Developed by Drs. Gilbert Nino, Ramona Tan, Betito Lopez and colleagues, with an educational ken from [employer]. Physical exam (Primary Care) Vital Signs: Last Vital Signs Temp 97.7 F 02/13/25 08:55 Pulse 64 02/13/25 08:55 Resp 16 02/13/25 08:55 BP 146/86 H 02/13/25 08:55 Pulse Ox 100 02/13/25 08:55 Oxygen Delivery Method Room Air 02/13/25 08:55 BMI result Body Mass Index 24.3 Tobacco/Smoking Status: Tobacco use Status Tobacco use date assessed 02/13/25 02/13/25 08:57 Patient Tobacco Use Status Current everyday Tobacco 02/13/25 08:57 Tobacco use type Cigarette 02/13/25 08:57 e-Cigarette/Vaping Use Never Used 02/13/25 08:57 PHQ-9: PHQ-9 Score PHQ-9: Total score 0 02/13/25 09:19 Depression Screening Interpretation: Negative Thrive Assessment: Date of Thrive Assessment Date Thrive assessed 07/25/24 02/13/25 08:57 Currently or been in a relationship where the following occur: No concerns reported Coding Level of Care Code Est Pt Level 4 (40328) Complex EM visit Add On G2211 Diagnoses Dermatitis L30.9 Hypertension, essential I10 Lipid disorder E78.9 Primary osteoarthritis involving multiple joints M15.0 Osteoarthritis type: primary Panlobular emphysema J43.1 COPD type: emphysema Emphysema type: panlobular Additional Codes PHQ-9 - 36499 - PHQ-9 Billing: Yes ([id number]) Assessment & Plan Assessment & Plan (1) Dermatitis: Code(s): L30.9 - Dermatitis, unspecified Category: Medical (2) Hypertension, essential: Code(s): I10 - Essential (primary) hypertension Category: Medical (3) Lipid disorder: Code(s): E78.9 - Disorder of lipoprotein metabolism, unspecified Category: Medical (4) Osteoarthritis of multiple joints: Code(s): M15.9 - Polyosteoarthritis, unspecified Category: Medical Qualifiers: Osteoarthritis type: primary Qualified Code(s): M15.0 - Primary generalized (osteo)arthritis (5) COPD (chronic obstructive pulmonary disease): Code(s): J44.9 - Chronic obstructive pulmonary disease, unspecified Category: Medical Qualifiers: COPD type: emphysema Emphysema type: panlobular Qualified Code(s): J43.1 - Panlobular emphysema Plan History - The patient is a 69-year-old female presenting with a new skin rash. - The rash began approximately two weeks ago. - Initially appeared on the right lower leg and was extremely pruritic. - The rash has since spread to the left arm, right arm, and the other leg. - Patient reports itching, which seems to intensify during the afternoon and while at work, but does not notice when working due to engagement in activities. - She associates the onset potentially with handling dirty, external cans in bags at her workplace. - The rash has formed lesions that upon intensive scratching begin to weep; healing is observed on some lesions. - No prior medical treatment for this condition until today's visit was noted. - Initially used apple cider vinegar based on information sourced online. 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 - Keep affected skin areas clean and avoid scratching to prevent further skin breakdown. - Avoid using slze-tpe-vluxyyj ointments unless directed. - Schedule follow-up in one week to reassess rash improvement - continue other medications Orders: Orders Complete Blood Count Auto Diff Today E78.9 - Disorder of lipoprotein metabol ism, unspecified, I10 - Essential (primary) hypertension, J43.1 - Panlobular emphysema, L30.9 - Dermatitis, unspecified, M15.0 - Primary generalized (osteo)arthritis Lipid Panel Today E78.9 - Disorder of lipoprotein metabolism, unspecified, I10 - Essential (primary) hypertension, J43.1 - Panlobular emphysema, L30.9 - Dermatitis, unspecified, M15.0 - Primary generalized (osteo)arthritis Vitamin D 25-OH (D2 and D3) Today E78.9 - Disorder of lipoprotein metabolism, unspecified, I10 - Essential (primary) hypertension, J43.1 - Panlobular emphyse ma, L30.9 - Dermatitis, unspecified, M15.0 - Primary generalized (osteo)arthritis TSH reflex Free T4 Today E78.9 - Disorder of lipoprotein metabolism, unspecified, I10 - Essential (primary) hypertension, J43.1 - Panlobular emphysema, L30.9 - Dermatitis, unspecified, M15.0 - Primary generalized (osteo)arthritis Comprehensive [place]. Panel Fast Today E78.9 - Disorder of lipoprotein metabolism, unspecified, I10 - Essential (primary) hypertension, J43.1 - Panlobular emphysema, L30.9 - Dermatitis, unspecified, M15.0 - Primary generalized (osteo)arthritis Medications: New amoxicillin-pot clavulanate 875-125 mg 1 tab PO BID 7 days 14 tabs 0RF hydroxyzine HCl 25 mg PO BEDTIME 10 tabs 0RF itching methylprednisolone (Medrol (Kalyan)) PO PER PKG DIR 6 days 21 ea 0RF Discontinued albuterol sulfate 90 mcg/actuation (ProAir HFA) Discontinued Reason: Doctor's Order 1 inh inhalation QID 30 days PRN 18 grams 0RF shortness of breath or wheezing ipratropium-albuterol 0.5 mg-3 mg(2.5 mg base)/3 mL Discontinued Reason: Doctor's Order 3 mL inhalation Q6-8H 30 days PRN 90 mL 0RF wheezing
--- OUTSIDE RECORDS SUMMARY | 2025-02-13 09:18 | XMS_ITS | Patient Health Record ---
Author Organization [facility] Address [address] [place] [id number] Care Team Providers Care Preschool Program Director Name Role Phone Gurdeep FORRESTER, Asma Primary Care Provider Ritchie Nicole Jr Unavailable Reason For Referral No Information Medications Medication SIG (Take, Route, Frequency, Duration) Notes Start Date End Date Status Colyte with Flavor Packs 240 GM As directed Orally Over the specified time. for 1 day(s) 12/05/2013 09/05/2024 Active Lisinopril 10mg Acti ve Problems Problem Type SNOMED Code ICD Code Onset Dates Problem Status W/U Status Risk Notes Problem Colon cancer screening (V76.51) Active confirmed Plan Of Treatment Future Test Test Name Order Date COLONOSCOPY 12/05/2013 Insurance Providers Payer Name Payer Address Payer Phone Subscriber Number Group Number Insured Name Patient Relationship to Insured Coverage Start Date Coverage End Date [employer] MED[employer] COMP (REFERR AL REQUIRE D) [address] [address] [place] [address] [phone] [id number] LUZ MARIANALINI MCMANUS Self - patient is the insured Medical (General) History Medical History History ICD Code hypertension Denies [place],DM,CVA,Lung disease,renal dise ase she is scheduled for a total hysterectomy on January 03 because of uterine prolapse.
== END 2025-02-13 09:19 | disposition home or self-care (01) ==
LOC: HO.HMCC 08:54
PROVIDERS: PCP Internal Medicine; Visit Provider Internal Medicine
DX: J43.1 Panlobular emphysema (principal); L30.9 Dermatitis, unspecified; I10 Essential (primary) hypertension; E78.9 Disorder of lipoprotein metabolism, unspecified; M15.0 Primary generalized (osteo)arthritis

== ENCOUNTER 2025-02-20 08:34 | Outpatient (AMB) | payer MEDICARE, SELFPAY ==
--- NOTE | 2025-02-20 08:35 | A.OFFPC_ITS ---
Vital Signs 3 02/20/25 08:36 Height 5 ft 3 in Weight 138 lb 6 oz BMI 24.5 BP 142/90 H Blood Pressure Location Lt brachial Position Sitting Pulse 80 Pulse Source Pulse Oximeter Temp 97.5 F Temp Source Oral Pulse Oximetry (%) 97 Oxygen Delivery Method Room Air Intake Visit Reasons: 1 week f/up Allergies No Known Allergies Allergy (Verified 02/20/25 08:40) Medication List - Last Reconciled 02/20/25 by Martell Mackenzie MD amoxicillin-pot clavulanate 875-125 mg 1 tab PO BID 7 days cholecalciferol (vitamin D3) 25 mcg PO DAILY 90 days hydroxyzine HCl 25 mg PO BEDTIME losartan-hydrochlorothiazide 100-25 mg 1 tab PO DAILY lovastatin 20 mg PO DAILY 90 days methylprednisolone (Medrol (Kalyan)) PO PER PKG DIR 6 days Tobacco use date assessed: 02/13/25 Fall risk assessment: No Falls in past year Last assessed Fall Risk: 02/20/25 Dental Screening Dental Screen Date: 02/13/25 HPI 1 week f/up 2 HPI0 Details 69-year-old female came in for follow-up She was seen last week with a pruritic rash For detail please see my last note She was treated with amoxicillin because of infection right leg She had developed cellulitis because of scratching, that rash is drying out She still have some patches on right forearm and in the back But rash is 95% resolved I am giving her a smaller dose of prednisone for another week Initially she was treated with Augmentin and Medrol Dosepak Patient will update me in a week. [facility] Medical History Lipid disorder Hypertension, essential Tobacco abuse Surgical History History of femoral hernia repair (10/07/22) History of vaginal hysterectomy Family History Father Lung cancer Smoker Mother Breast cancer Dementia Brother Myocardial infarction Brother No problems noted. Sister No problems noted. Sister No problems noted. Sister No problems noted. Son No problems noted. Social History Household Members: Family Housing: Apartment Do you presently have visiting nurse or other home services: No Alcohol intake: current Alcohol intake frequency: holidays/special occasions only Alcohol type: beer and hard liquor Patient Tobacco Use Status: Current everyday Tobacco user Tobacco use type: Cigarette Cigarettes Per Day: 4 e-Cigarette/Vaping Use: Never Used service: No Current occupational status: employed Cognitive needs: No Hearing needs: No Vision needs: Yes Questionnaire Thrive Questionnaire Date Thrive assessed: 02/13/25 I am a: Patient What is your living situation today?: I have a steady place to live Within the past 12 months, did the food you bought not last and you didn't have the money to get more?: Never true Within the past 12 months, did you worry whether your food would run out before you got money to buy more?: Never true Do you have trouble paying for medicines?: No Do you have trouble getting transportation to medical appointments?: No Do you have trouble paying your heating and electricity bill?: No Do you have trouble taking care of your child, family member or friend?: No Do you have trouble with day-to-day activities such as bathing, preparing meals, shopping, managing finances, etc.?: No Are you currently unemployed and looking for a job?: No Are you interested in more education?: No Please select the resources that you would like help with: None Currently or been in a relationship where the following occur: No concerns reported THRIVE Score: 0 KATHERIN-7 AMB Questionnaire KATHERIN-7 Date KATHERIN - 7 assessed: 02/20/25 Feeling nervous, anxious, or on edge: 0 = Not at all Not being able to stop or control worryin = Not at all Worrying too much about different things: 0 = Not at all Trouble relaxin = Not at all Being so restless that it is hard to sit still: 0 = Not at all Becoming easily annoyed or irritable: 0 = Not at all Feeling afraid as if something awful might happen: 0 = Not at all Total KATHERIN-7 score (0-4 normal; 5-9 mild; 10-14 moderate; 15-21 severe): 0 Source: Developed by Drs. Gilbert Nino, Ramona Tan, Betito Lopez and colleagues, with an educational ken from [employer] KATHERIN-7 Assessment Billing KATHERIN-7 Assessment Tool: KATHERIN-7 Assessment 67650 Review of Systems Const Denies chills and Denies fever(s) ENT Denies epistaxis and Denies nasal discharge Card Denies chest pain Resp Denies chest congestion, Denies cough and Denies hemoptysis GI Denies diarrhea and Denies nausea Neuro Reports no additional complaints Psych Reports no additional complaints Endo Reports no additional complaints Physical exam (Primary Care) Vital Signs: Last Vital Signs Temp 97.5 F 02/20/25 08:36 Pulse 80 02/20/25 08:36 BP 142/90 H 02/20/25 08:36 Pulse Ox 97 02/20/25 08:36 Oxygen Delivery Method Room Air 02/20/25 08:36 BMI result Body Mass Index 24.5 Tobacco/Smoking Status: Tobacco use Status Tobacco use date assessed 02/13/25 02/20/25 08:42 Patient Tobacco Use Status Current everyday Tobacco 02/20/25 08:42 Tobacco use type Cigarette 02/20/25 08:42 e-Cigarette/Vaping Use Never Used 02/20/25 08:42 Thrive Assessment: Date of Thrive Assessment Date Thrive assessed 02/13/25 02/20/25 08:42 Currently or been in a relationship where the following occur: No concerns reported Const General: cooperative, comfortable and no acute distress Orientation/consciousness: patient oriented x3 HENMT Head: Yes normocephalic Eyes General: appearance normal, both eyes and all related structures Neck Neck: Yes supple Resp Effort & Inspection: normal respiratory effort, no cough and no stridor Skin General skin exam: turgor normal Full body images: 2 1. Rash drying out 2. Erythematous rash 3. Similar rash in the back Neuro General: patient oriented x3, tone normal and moves all extremities Extrem Right lower extremity: no edema Left lower extremity: no edema Coding Level of Care Code Est Pt Level 3 (12464) Diagnoses Pruritic dermatitis L30.8 Additional Codes KATHERIN-7 Assessment Billing - KATHERIN-7 Assessment Tool: KATHERIN-7 Assessment 62615 ([id number]) Assessment & Plan Assessment & Plan (1) Pruritic dermatitis: Code(s): L30.8 - Other specified dermatitis Category: Medical Plan 69-year-old female came in for follow-up She was seen last week with a pruritic rash For detail please see my last note She was treated with amoxicillin because of infection right leg She had developed cellulitis because of scratching, that rash is drying out She still have some patches on right forearm and in the back But rash is 95% resolved I am giving her a smaller dose of prednisone for another week Initially she was treated with Augmentin and Medrol Dosepak Patient will update me in a week. Medications: New 2 prednisone 20 mg PO DAILY 5 tabs 0RF 5 days Discontinued 2 methylprednisolone (Medrol (Kalyan)) Discontinued Reason: Doctor's Order PO PER PKG DIR 6 days 21 ea 0RF
[2025-02-20 08:36] VITALS: BP 142/90; PULSE 80; TEMP 36.4; O2SAT 97; BMI 24.5
--- OUTSIDE RECORDS SUMMARY | 2025-02-20 08:57 | XMS_ITS | Patient Health Record ---
Author Organization [facility] Address [address] [place] [id number] Care Team Providers Care Airworthiness Safety Inspector Name Role Phone Gurdeep FORRESTER, Asma Primary [...] COMP (REFERR AL REQUIRE D) [address] [address] [place] [id number] LUZ MARIANALINI MCMANUS Self - patient is the insured Medical (General) History Medical History History ICD Code hypertension Denies [place],DM,CVA,Lung disease,renal dise ase she is scheduled for a total hysterectomy on January 03 because of uterine prolapse.
== END 2025-02-20 09:47 | disposition home or self-care (01) ==
LOC: HO.HMCC 08:34
PROVIDERS: PCP Internal Medicine; Visit Provider Internal Medicine
DX: L30.8 Other specified dermatitis (principal)

== ENCOUNTER → 2025-02-20 08:34 | Outpatient (BNVA) | payer MEDICARE, SELFPAY | PROVIDERS: PCP Internal Medicine; Visit Provider Internal Medicine | DX: L30.8 Other specified dermatitis (principal) | CPT/HCPCS: 96127; 99212 ==

== ENCOUNTER 2025-04-24 08:51 | Outpatient (AMB) | payer MEDICARE, SELFPAY ==
--- NOTE | 2025-04-24 08:54 | A.OFFPC_ITS ---
Vital Signs 04/24/25 08:56 Height 5 ft 3 in Weight 136 lb BMI 24.1 BP 144/86 H Blood Pressure Location Lt brachial Position Sitting Respiration 14 Pulse 95 Pulse Source Pulse Oximeter Temp 97.8 F Temp Source Oral Pulse Oximetry (%) 94 Oxygen Delivery Method Room Air Intake Visit Reasons: Annual PE Allergies No Known Allergies Allergy (Verified 04/24/25 08:56) Medication List - Last Reconciled 04/24/25 by Martell Mackenzie MD cholecalciferol (vitamin D3) 25 mcg PO DAILY 90 days hydroxyzine HCl 25 mg PO BEDTIME losartan-hydrochlorothiazide 100-25 mg 1 tab PO DAILY lovastatin 20 mg PO DAILY 90 days Tobacco use date assessed: 02/13/25 Dental Screening Dental Screen Date: 02/13/25 HPI Annual PE HPI Details History of Present Illness The patient is a 69-year-old female presenting for PE c/o neck/head pain. Essential Hypertension: - Patient reports elevated blood pressur e readings during office visits. - Previous blood pressure readings were also elevated but not monitored at home. - Currently on losartan and hydrochlorot hiazide for blood pressure management. - No recent home blood pressure measurem ents reported. Cervical Arthritis: - Patient experiences neck and head pain , particularly in the morning upon waking. - Pain originates in the neck and radiat es upwards, causing stiffness and soreness. - Symptoms improve as the day progresses , but some discomfort remains. - Patient has concerns about a possible brain tumor; however, the characteristics of the pain align more with cervical issues. - No neurological symptoms like dizzines s or vision issues reported; [id number] medications provide minor relief. Hyponatremia: - Sodium level was slightly low at 134 m Eq/L. - Patient consumes alcoholic beverages o ccasionally, which may contribute to the reduced sodium level. Prediabetes: - Fasting blood sugar level was 100 mg/d L, indicating prediabetes.. Hyperlipidemia: - Patient is on lovastatin for cholester ol management. - LDL cholesterol is 104 mg/dL. 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 - Consumes sugary foods frequently Health Maintenance - Last mammogram in May of the pre vious year; due again this May - Last colonoscopy over ten years ago; p atelier plans to undertake another want to see Dr Fleming - Patient prediabetic with fasting sugar level at 100 mg/dL - Sodium level slightly low, influenced possibly by alcohol consumption Medications - Losartan for hypertension - Hydrochlorothiazide for hypertension - Lovastatin for hyperlipidemia - Vitamin D supplement 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 - Continue vitamin D supplementation. - Follow recommendations for x-ray imagi ng neck to confirm arthritis diagnosis. - Start using a thin pillow at night to reduce neck strain. - Schedule a colonoscopy for routine [facility]. - Set up a follow-up telephone visit to review x-ray results. in one week PE in one year regular f.u for Bp in 4 wks Review of Systems - General: No fever no chills - Neurological: no dizziness - Ear nose throat: No sore throat no hearing difficulty no ear pain - Cardiovascular: No syncope, no chest pain, no palpitations - Gastrointestinal: No nausea vomiting or diarrhea - Endocrine: No polyuria polydipsia no heat intolerance - Genitourinary: No dysuria - Skin: No new complaints Physical Exam General: Cooperative, healthy appearing, comfortable, no acute distress Orientation: Patient oriented x3 Head: Normal to inspection, but reports pain from neck up, especially in the morning Ears: Within normal limit visually Nose: Normal external nose present Face and sinus: Normal facial exam Eyes: Appearance normal, extraocular movement intact pupils reactive Neck: Normal visual inspection, but reports stiffness and pain, especially in the morning, limited rotation to left Respiratory: Normal respiratory effort and able to speak in complete sentences. Clear to auscultation, no stridor Cardiovascular: S1 and S2 RRR GI: Normal to inspection. Soft to palpation and nontender Skin: Turgor normal, no acute findings Neuro: Patient oriented x3, motor sensory intact, balance intact, tandem failed Extremities: Normal to inspection [facility] Medical History Lipid disorder Hypertension, essential Tobacco abuse Surgical History History of femoral hernia repair (10/07/22) History of vaginal hysterectomy Family History Father Lung cancer Smoker Mother Breast cancer Dementia Brother Myocardial infarction Brother No problems noted. Sister No problems noted. Sister No problems noted. Sister No problems noted. Son No problems noted. Social History Household Members: Family Housing: Apartment Do you presently have visiting nurse or other home services: No Alcohol intake: current Alcohol intake frequency: holidays/special occasions only Alcohol type: beer and hard liquor Patient Tobacco Use Status: Current everyday Tobacco user Tobacco use type: Cigarette Cigarettes Per Day: 7 e-Cigarette/Vaping Use: Never Used service: No Current occupational status: employed Cognitive needs: No Hearing needs: No Vision needs: Yes Questionnaire Thrive Questionnaire Date Thrive assessed: 02/13/25 I am a: Patient What is your living situation today?: I have a steady place to live Within the past 12 months, did the food you bought not last and you didn't have the money to get more?: Never true Within the past 12 months, did you worry whether your food would run out before you got money to buy more?: Never true Do you have trouble paying for medicines?: No Do you have trouble getting transportation to medical appointments?: No Do you have trouble paying your heating and electricity bill?: No Do you have trouble taking care of your child, family member or friend?: No Do you have trouble with day-to-day activities such as bathing, preparing meals, shopping, managing finances, etc.?: No Are you currently unemployed and looking for a job?: No Are you interested in more education?: No Please select the resources that you would like help with: None Currently or been in a relationship where the following occur: No concerns reported THRIVE Score: 0 KATHERIN-7 AMB Questionnaire KATHERIN-7 Date KATHERIN - 7 assessed: 02/20/25 Source: Developed by Drs. Gilbert Nino, Ramona Tan, Betito Lopez and colleagues, with an educational ken from [employer]. Physical exam (Primary Care) Vital Signs: Last Vital Signs Temp 97.8 F 04/24/25 08:56 Pulse 95 04/24/25 08:56 Resp 14 04/24/25 08:56 BP 144/86 H 04/24/25 08:56 Pulse Ox 94 04/24/25 08:56 Oxygen Delivery Method Room Air 04/24/25 08:56 BMI result Body Mass Index 24.1 Tobacco/Smoking Status: Tobacco use Status Tobacco use date assessed 02/13/25 04/24/25 09:01 Patient Tobacco Use Status Current everyday Tobacco 04/24/25 09:01 Tobacco use type Cigarette 04/24/25 09:01 e-Cigarette/Vaping Use Never Used 04/24/25 09:01 Thrive Assessment: Date of Thrive Assessment Date Thrive assessed 02/13/25 04/24/25 09:01 Currently or been in a relationship where the following occur: No concerns reported Coding Level of Care Code Est Pt Level 3 (22487) Est Pt Prev Care >65y(40178) Diagnoses Colon cancer screening Z12.11 Cervical (neck) region somatic dysfunction M99.01 Cervicalgia M54.2 Encounter for general adult medical examination with abnormal findings Z00.01 Abnormal tandem walk R26.9 Panlobular emphysema J43.1 COPD type: emphysema Emphysema type: panlobular Lipid disorder E78.9 Hypertension, essential I10 Low sodium levels E87.1 Assessment & Plan Assessment & Plan (1) Colon cancer screening: Code(s): Z12.11 - Encounter for screening for malignant neoplasm of colon Category: Medical (2) Cervical (neck) region somatic dysfunction: Code(s): M99.01 - Segmental and somatic dysfunction of cervical region Category: Medical (3) Cervicalgia: Code(s): M54.2 - Cervicalgia Category: Medical (4) Encounter for general adult medical examination with abnormal findings: Code(s): Z00.01 - Encounter for general adult medical examination with abnormal findings Category: Medical (5) Abnormal tandem walk: Code(s): R26.9 - Unspecified abnormalities of gait and mobility Category: Medical (6) COPD (chronic obstructive pulmonary disease): Code(s): J44.9 - Chronic obstructive pulmonary disease, unspecified Category: Medical Qualifiers: COPD type: emphysema Emphysema type: panlobular Qualified Code(s): J43.1 - Panlobular emphysema (7) Lipid disorder: Code(s): E78.9 - Disorder of lipoprotein metabolism, unspecified Category: Medical (8) Hypertension, essential: Code(s): I10 - Essential (primary) hypertension Category: Medical (9) Low sodium levels: Code(s): E87.1 - Hypo-osmolality and hyponatremia Category: Medical Plan History of Present Illness The patient is a 69-year-old female presenting for PE c/o neck/head pain. Essential Hypertension: - Patient reports elevated blood pressure readings during office visits. - Previous blood pressure readings were also elevated but not monitored at home. - Currently on losartan and hydrochlorothiazide for blood pressure management. - No recent home blood pressure measurements reported. Cervical Arthritis: - Patient experiences neck and head pain, particularly in the morning upon waking. - Pain originates in the neck and radiates upwards, causing stiffness and soreness. - Symptoms improve as the day progresses, but some discomfort remains. - Patient has concerns about a possible brain tumor; however, the characteristics of the pain align more with cervical issues. - No neurological symptoms like dizziness or vision issues reported; [id number] medications provide minor relief. Hyponatremia: - Sodium level was slightly low at 134 mEq/L. - Patient consumes alcoholic beverages occasionally, which may contribute to the reduced sodium level. Prediabetes: - Fasting blood sugar level was 100 mg/dL, indicating prediabetes.. Hyperlipidemia: - Patient is on lovastatin for cholesterol management. - LDL cholesterol is 104 mg/dL. 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 Health Maintenance - Last mammogram in May of the previous year; due again this May - Last colonoscopy over ten years ago; patient plans to undertake another want to see Dr Fleming - Patient prediabetic with fasting sugar level at 100 mg/dL - Sodium level slightly low, influenced possibly by alcohol consumption Medications - Losartan for hypertension - Hydrochlorothiazide for hypertension - Lovastatin for hyperlipidemia - Vitamin D supplement 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 - Continue vitamin D supplementation. - Follow recommendations for x-ray imaging neck to confirm arthritis diagnosis. - Start using a thin pillow at night to reduce neck strain. - Schedule a colonoscopy for routine health maintenance. - Set up a follow-up telephone visit to review x-ray results. in one week PE in one year regular f.u for Bp in 4 wks Orders: Orders XR cervical spine 2V Today M54.2 - Cervicalgia Referrals Gastroenterology Referral Z12.11 - Encounter for screening for malignant neoplasm of colon Medications: New amlodipine 5 mg PO DAILY 90 tabs 0RF 90 days naproxen take it with food 500 mg PO BEDTIME PRN 30 tabs 0RF pain 30 days Discontinued hydroxyzine HCl Discontinued Reason: Doctor's Order 25 mg PO BEDTIME 10 tabs 0RF itching
[2025-04-24 08:56] VITALS: BP 144/86; PULSE 95; RESP 14; TEMP 36.6; O2SAT 94; BMI 24.1
--- OUTSIDE RECORDS SUMMARY | 2025-04-24 09:34 | XMS_ITS | Patient Health Record ---
Author Organization [facility] Address [address] [place] [address] Care Team Providers Care Cat Scan Technologist Name Role Phone Gurdeep FORRESTER, Asma Primary [...] COMP (REFERR AL REQUIRE D) [address] [address] [place] [address] [phone] [id number] LUZ MARIANALINI MCMANUS Self - patient is the insured Medical (General) History Medical History History ICD Code hypertension Denies [place],DM,CVA,Lung disease,renal dise ase she is scheduled for a total hysterectomy on January 03 because of uterine prolapse.
== END 2025-04-24 10:09 | disposition home or self-care (01) ==
LOC: HO.HMCC 08:51
PROVIDERS: PCP Internal Medicine; Visit Provider Internal Medicine
DX: Z00.01 Encounter for general adult medical examination with abnormal findings (principal); J43.1 Panlobular emphysema; M99.01 Segmental and somatic dysfunction of cervical region; I10 Essential (primary) hypertension; Z12.11 Encounter for screening for malignant neoplasm of colon; R26.9 Unspecified abnormalities of gait and mobility; M54.2 Cervicalgia; E78.9 Disorder of lipoprotein metabolism, unspecified; E87.1 Hypo-osmolality and hyponatremia

== ENCOUNTER 2025-04-24 08:51 | Outpatient (REF) | payer MEDICARE, SELFPAY ==
--- NOTE | ~2025-04-24 | XR_ITS ---
EXAMINATION: XR CERVICAL SPINE CLINICAL INFORMATION: M54.2 - Cervicalgia COMPARISON: None available. TECHNIQUE: AP, lateral, swimmer's and atlantoodontoid views. FINDINGS: Craniocervical junction is intact. Anterior marginal osteophyte formation C3-4, C5-6 C6-7 levels. Endplate sclerosis and decreased intervertebral disc height C5-6 and C6-7 levels. Grade 1 anterolisthesis C4-5. Grade 1 retrolisthesis, C5-6. No lytic or blastic lesions. Soft tissue calcifications probably carotid arteries. Upper airway is patent. XR/XR cervical spine 2V IMPRESSION: Multilevel spondylosis resulting in grade 1 anterolisthesis C4-5 and grade 1 retrolisthesis C5-6.. Probable atherosclerosis disease, carotid arteries. Electronically signed by: Ignacio Barraza MD 04/24/2025 10:25 AM EDT
== END 2025-04-24 08:52 | disposition home or self-care (01) ==
LOC: HO.HMGCX 08:51
PROVIDERS: PCP Internal Medicine; Visit Provider Internal Medicine
DX: Z12.11 Encounter for screening for malignant neoplasm of colon (principal); Z00.01 Encounter for general adult medical examination with abnormal findings; M54.2 Cervicalgia; M99.01 Segmental and somatic dysfunction of cervical region; R26.9 Unspecified abnormalities of gait and mobility; J43.1 Panlobular emphysema; E78.9 Disorder of lipoprotein metabolism, unspecified; I10 Essential (primary) hypertension; E87.1 Hypo-osmolality and hyponatremia; Z79.899 Other long term (current) drug therapy
CPT/HCPCS: 72040; 99212; 99397

== ENCOUNTER → 2025-04-24 09:43 | Outpatient (BNV) | payer MEDICARE, SELFPAY | PROVIDERS: PCP Internal Medicine; Visit Provider Radiology Diagnostic Radiology | DX: M47.811 Spondylosis without myelopathy or radiculopathy, occipito-atlanto-axial region (principal) | CPT/HCPCS: 72040 ==

== ENCOUNTER 2025-05-02 06:21 | Outpatient (AMB) | payer MEDICARE, SELFPAY ==
--- OUTSIDE RECORDS SUMMARY | 2025-05-02 06:25 | XMS_ITS | Patient Health Record ---
Author Organization [facility] Address [address] [place] [address] Care Team Providers Care Job Printer Apprentice Name Role Phone Gurdeep [facility], [facility] Primary Care Provider Ritchie Nicole Jr Unavailable [phone] Reason For Referral No Information Medications Medication [...] Test Test Name Order Date COLONOSCOPY 12/05/2013 Next Appt Details Provider Name:Ritchie gottlieb Jr, 08/12/2025 01:15:00 PM, [address], [address], [place], [address], Insurance Providers Payer Name Payer Address Payer Phone Subscriber Number Group Number Insured Name Patient Relationship to Insured Coverage Start Date Coverage End Date [employer] MEDI COMP (REFERR AL REQUIRE D) [address] [address] [place], [place] [id number] [phone] [id number] LUZ MARIANALINI MCMANUS Self - patient is the insured Medical (General) History Medical History History ICD Code hypertension Denies [place],DM,CVA,Lung disease,renal dise ase she is scheduled for a total hysterectomy on January 03 because of uterine prolapse.
--- NOTE | 2025-05-02 09:38 | A.OFFPC_ITS ---
Intake Visit Reasons: TV follow up/iphone Allergies No Known Allergies Allergy (Verified 04/24/25 08:56) Medication List - Last Reconciled 05/02/25 by Martell Mackenzie MD amlodipine 5 mg PO DAILY 90 days cholecalciferol (vitamin D3) 25 mcg PO DAILY 90 days losartan-hydrochlorothiazide 100-25 mg 1 tab PO DAILY lovastatin 20 mg PO DAILY 90 days naproxen 500 mg PO BEDTIME PRN 30 days Tobacco use date assessed: 02/13/25 Dental Screening Dental Screen Date: 02/13/25 HPI TV follow up/iphone HPI Details Chief Complaint Neck pain with recent improvement. History of Present Illness The patient is a 70-year-old female presenting with neck pain and cervical radiographic findings. Neck pain: - Initial presentation with neck pain. - Noted improvement in neck pain after r educing pillow height, now feels 100% better. - Denies tingling in hands or weakness. - X-ray showed arthritic changes in cerv ical spine. Arterial calcification: - X-ray detected calcification in neck v essels indicating plaque and narrowing. - No previous symptoms associated with v ascular issues reported. Hypertension: - Discussed management of blood pressure . - Taking amlodipine for blood pressure m anagement. along with Losrt- Hctz - Has yet to check blood pressure recent ly. Problem List - Cervical Spondylosis - Vascular Calcification - Hypertension Patient Instructions - Monitor blood pressure regularly. - Continue taking prescribed medications . - Expect a call to schedule an appointme nt with a product management internship. - If neck pain worsens or if symptoms li ke tingling or weakness occur, seek further evaluation. Review of Systems - General: No fever no chills - Neurological: No headaches no dizziness - Ear nose throat: No sore throat no hearing difficulty no ear pain - Cardiovascular: No syncope, no chest pain, no palpitations - Gastrointestinal: No nausea vomiting or diarrhea [facility] Medical History Lipid disorder Hypertension, essential Tobacco abuse Surgical History History of femoral hernia repair (10/07/22) History of vaginal hysterectomy Family History Father Lung cancer Smoker Mother Breast cancer Dementia Brother Myocardial infarction Brother No problems noted. Sister No problems noted. Sister No problems noted. Sister No problems noted. Son No problems noted. Social History Household Members: Family Housing: Apartment Do you presently have visiting nurse or other home services: No Alcohol intake: current Alcohol intake frequency: holidays/special occasions only Alcohol type: beer and hard liquor Patient Tobacco Use Status: Current everyday Tobacco user Tobacco use type: Cigarette Cigarettes Per Day: 7 e-Cigarette/Vaping Use: Never Used service: No Current occupational status: employed Cognitive needs: No Hearing needs: No Vision needs: Yes Questionnaire Thrive Questionnaire Date Thrive assessed: 02/13/25 I am a: Patient What is your living situation today?: I have a steady place to live Within the past 12 months, did the food you bought not last and you didn't have the money to get more?: Never true Within the past 12 months, did you worry whether your food would run out before you got money to buy more?: Never true Do you have trouble paying for medicines?: No Do you have trouble getting transportation to medical appointments?: No Do you have trouble paying your heating and electricity bill?: No Do you have trouble taking care of your child, family member or friend?: No Do you have trouble with day-to-day activities such as bathing, preparing meals, shopping, managing finances, etc.?: No Are you currently unemployed and looking for a job?: No Are you interested in more education?: No Please select the resources that you would like help with: None Currently or been in a relationship where the following occur: No concerns reported THRIVE Score: 0 KATHERIN-7 AMB Questionnaire KATHERIN-7 Date KATHERIN - 7 assessed: 02/20/25 Source: Developed by Drs. Gilbert Nino, Ramona Tan, Betito Lopez and colleagues, with an educational ken from [employer]. Physical exam (Primary Care) Tobacco/Smoking Status: Tobacco use Status Tobacco use date assessed 02/13/25 04/24/25 09:01 Patient Tobacco Use Status Current everyday Tobacco 04/24/25 09:01 Tobacco use type Cigarette 04/24/25 09:01 e-Cigarette/Vaping Use Never Used 04/24/25 09:01 Thrive Assessment: Date of Thrive Assessment Date Thrive assessed 02/13/25 04/24/25 09:01 Currently or been in a relationship where the following occur: No concerns reported Telehealth Telehealth Telehealth Platform: [employer] Location of provider rendering services: practice address Location of patient: address on file Patient Identification confirmed using: Name, : Yes Telehealth method: video Patient verbally consented to treatment: Yes Patient verbally consented to billing insurance company: Yes Patient informed of any privacy concerns related to visit: Yes Minutes spent on Phone/Video with Pt.: 13 Coding Level of Care Code Tele Est Pt Level 3 (61761) Diagnoses Aortic atherosclerosis I70.0 Hypertension, essential I10 Assessment & Plan Assessment & Plan (1) Aortic atherosclerosis: Code(s): I70.0 - Atherosclerosis of aorta Category: Medical (2) Hypertension, essential: Code(s): I10 - Essential (primary) hypertension Category: Medical Plan Chief Complaint Neck pain with recent improvement. History of Present Illness The patient is a 70-year-old female presenting with neck pain and cervical radiographic findings. Neck pain: - Initial presentation with neck pain. - Noted improvement in neck pain after reducing pillow height, now feels 100% better. - Denies tingling in hands or weakness. - X-ray showed arthritic changes in cervical spine. Arterial calcification: - X-ray detected calcification in neck vessels indicating plaque and narrowing. - No previous symptoms associated with vascular issues reported. Hypertension: - Discussed management of blood pressure. - Taking amlodipine for blood pressure management. along with Losrt- Hctz - Has yet to check blood pressure recently. Problem List - Cervical Spondylosis - Vascular Calcification - Hypertension Patient Instructions - Monitor blood pressure regularly. - Continue taking prescribed medications. - Expect a call to schedule an appointment with a product management internship. - If neck pain worsens or if symptoms like tingling or weakness occur, seek further evaluation. f/u 6 M for Bp Orders: Referrals Cardiology Referral I70.0 - Atherosclerosis of aorta
== END 2025-05-02 11:42 | disposition home or self-care (01) ==
LOC: HO.HMCC 06:22
PROVIDERS: PCP Internal Medicine; Visit Provider Internal Medicine
DX: I70.0 Atherosclerosis of aorta (principal); I10 Essential (primary) hypertension

== ENCOUNTER 2025-05-20 07:32 | Outpatient (REF) | payer MEDICARE, SELFPAY ==
--- NOTE | ~2025-05-20 | MM_ITS ---
EXAMINATION: MM SCREENING DIGITAL BREAST TOMOSYNTHESIS, BILATERAL CLINICAL INFORMATION: Screening. Asymptomatic. COMPARISON: Mammography: Comparison is made with available priors TECHNIQUE: Digital breast mammography with tomosynthesis is performed in both the craniocaudal and mediolateral oblique views along with computer-aided detection (CAD). FINDINGS: The breasts are heterogeneously dense, which may obscure small masses (ACR BI-RADS breast composition Category c). There are no significant masses, abnormal calcifications, or other abnormalities. MM/MM tomosynthesis screening BI IMPRESSION: No mammographic evidence of malignancy. ASSESSMENT: BI-RADS BI-RADS 1 - Negative RECOMMENDATION: Routine annual mammography screening. 1 year F/U This examination should not preclude the clinical evaluation of a suspicious palpable abnormality. This patient's information was entered into a reminder system with a target due date for their next mammogram. Electronically signed by: Divya Sabillon DO 05/21/2025 04:57 PM EDT
--- OUTSIDE RECORDS SUMMARY | 2025-05-20 07:35 | XMS_ITS | Patient Health Record ---
Author Organization [facility] Address [address] [place] [address] Care Team Providers Care President/Gm Production & Live Experiences Name Role Phone Gurdeep FORRESTER, Asma Primary [...] Status Risk Notes Problem Colon cancer screening ([id number]) Colon cancer screening (V76.51) Active confirmed Plan Of Treatment Future Test Test Name Order Date COLONOSCOPY 12/05/2013 Next Appt Details Provider Name:Ritchie gottlieb Jr, 08/12/2025 01:15:00 PM, [address], [address], [place], [address], Insurance Providers Payer Name Payer Address Payer Phone Subscriber Number Group Number Insured Name Patient Relationship to Insured Coverage Start Date Coverage End Date A[employer] MEDI COMP (REFERR AL REQUIRE D) [address] [address] [place], [place] [id number] LUZ MARIA NALINI PETERS Self - patient is the insured Medical (General) History Medical History History ICD Code hypertension Denies [place],DM,CVA,Lung disease,renal dise ase she is scheduled for a total hysterectomy on January 03 because of uterine prolapse.
== END 2025-05-20 07:33 | disposition home or self-care (01) ==
LOC: HO.MAMMO 07:32
PROVIDERS: PCP Internal Medicine; Visit Provider Internal Medicine
DX: Z12.31 Encounter for screening mammogram for malignant neoplasm of breast (principal)
CPT/HCPCS: 77063; 77067

== ENCOUNTER → 2025-05-20 07:45 | Outpatient (BNV) | payer MEDICARE, SELFPAY | PROVIDERS: PCP Internal Medicine; Visit Provider Internal Medicine | DX: Z12.31 Encounter for screening mammogram for malignant neoplasm of breast (principal) | CPT/HCPCS: 77063; 77067 ==